=== PATIENT | female | born 1980 | race Caucasian/White ===

== ENCOUNTER → 2020-03-19 08:07 | Outpatient (BNVA) | payer OTHER, SELFPAY | PROVIDERS: Visit Provider Internal Medicine Endocrinology, Diabetes & Metabolism | DX: Z13.89 Encounter for screening for other disorder (principal) | CPT/HCPCS: Q3014 ==

== ENCOUNTER 2020-03-24 08:59 | Emergency (ER) | payer OTHER, SELFPAY ==
[2020-03-24 09:20] VITALS: BP 151/95; BP 169/92; PULSE 68; PULSE 75; RESP 20; TEMP 36.4; O2SAT 100; BMI 32.5
--- NOTE | 2020-03-24 09:24 | ED.NAVMDI ---
HPI - Nausea/Vomiting/Diarrhea General Chief complaint: Nausea/Vomiting/Diarrhea Stated complaint: N?V?D Time Seen by Provider: 03/24/20 09:23 Source: patient, EMS and manufacturer's representative Mode of arrival: EMS Limitations: no limitations History of Present Illness MD elicited complaint: nausea, vomiting, diarrhea and abdominal pain Onset (ago): day(s) (last night) Description of vomiting: food contents Associated nausea: Yes Associated abdominal pain: Yes Location of pain: diffuse Radiation: diffuse Pain consistency: constant Severity: similar to previous episodes Quality: cramping Exacerbating factors: none Relieving factors: none Context: possible food poisoning (started after eating pork) Associated symptoms: loss of appetite, malaise, nausea/vomiting and other (myalgias) Related Data Home Medications Medication Instructions Recorded Confirmed albuterol sulfate 90 mcg/actuation 2 puff INHALATION QID PRN 03/19/20 03/19/20 aerosol inhaler bictegravir 50 mg-emtricitabine 1 tab PO DAILY 03/19/20 03/19/20 200 mg-tenofovir alafenam 25 mg tablet docusate sodium 100 mg capsule 100 mg PO DAILY 03/19/20 03/19/20 gabapentin 100 mg capsule 200 mg PO TID 03/19/20 03/19/20 loratadine 10 mg tablet 10 mg PO DAILY 03/19/20 03/19/20 montelukast 10 mg tablet 10 mg PO DAILY 03/19/20 03/19/20 nabumetone 500 mg tablet 500 mg PO BID 03/19/20 03/19/20 naratriptan 2.5 mg tablet 2.5 mg PO DAILY 03/19/20 03/19/20 pantoprazole 40 mg tablet,delayed 40 mg PO DAILY 03/19/20 03/19/20 release sennosides 8.6 mg tablet 8.6 mg PO BEDTIME 03/19/20 03/19/20 topiramate 50 mg tablet 50 mg PO tab 03/19/20 03/19/20 Previous Rx's Medication Instructions Recorded ezetimibe 10 mg tablet 10 mg PO DAILY 30 Days #30 tab 03/19/20 levothyroxine 175 mcg tablet 175 mcg PO DAILY 9 Days #9 tab 03/19/20 pravastatin 10 mg tablet 10 mg PO DAILY 30 Days #30 tab 03/19/20 ondansetron 4 mg PO Q8H PRN #20 tab 03/24/20 promethazine 25 mg SC Q6H PRN #12 ea 03/24/20 Allergies Allergy/AdvReac Type Severity Reaction Status Date / Time Iodinated Contrast Media Allergy Severe ANAPHYLAXIS Verified 03/24/20 09:25 [IV CONTRAST] rosuvastatin [From CRESTOR] Allergy Severe SWELLING, Verified 03/24/20 09:[address] Scan Dye and Iodinated Allergy Unknown anaphylaxis Uncoded 10/25/19 00:00 Cont Review of Systems Review of Systems: Constitutional : No Weight loss, No Fever, No Chills ENT/Mouth : No sore throat, No Rhinorrhea Eyes: No Swelling, No Redness Cardiovascular : No Chest Pain, No SOB, NoEdema Respiratory : No Cough, No Sputum, No Wheezing Gastrointestinal : Positive Nausea, Positive Vomiting, positive Diarrhea, positive abdominal Pain, No Hematochezia, No Melena Genitourinary : No Dysuria, No Urinary Frequency, No Hematuria, No Urgency Musculoskeletal : No joint pain, pos Myalgias, No Joint Swelling Skin : No Skin Lesions, No rash Neuro : No Weakness, No Numbness, No Dizziness, No Headache Psych : No Anxiety/Panic, No Depression Heme/Lymph: No Bruising, No Lymphadenopathy Endocrine : No Polyuria, No Polydipsia All other systems reviewed and are negative. Gastrointestinal: Gastrointestinal: Reports nausea PMFSH Past Medical History Attestation statement: The following information was validated with the patient. Medical History (Updated 03/24/20 @ 13:12 by Loretta Baca DO) Dyslipidemia HIV (human immunodeficiency virus infection) Hypothyroidism Surgical History Hx of right breast biopsy Hx of tubal ligation Family History Family History (Updated 03/18/20 @ 08:34 by Kaylynn Patel LPN) Father CVA (cerebral vascular accident) Diabetes Mother Cervical cancer Social History Social History Alcohol intake: never Smoking Status: Never smoker Tobacco Type: Cigarette Use of substances other than those prescribed or required for medical reasons: Yes Substance Use Type: IV Drugs and Marijuana Substance Use Frequency: Daily Advance Directives: No Advance Directives Information Provided: No Physical Exam Vital Signs: Vital Signs: Last Vital Signs Temp 97.6 F 03/24/20 09:20 Pulse 73 03/24/20 14:00 Resp 15 03/24/20 14:00 BP 110/56 L 03/24/20 14:00 Pulse Ox 98 03/24/20 14:00 Body Mass Index 32.5 Appearance: Alert. Oriented X3. mild acute distress. Anxious, active vomiting Eyes: Pupils equal, round and reactive to light. ENT: Pharynx normal. Neck: Normal inspection. Neck supple. CVS: Normal heart rate and rhythm. Pulses normal. Respiratory: No respiratory distress. Breath sounds normal. Abdomen: Soft and mild epigastric tenderness no rebound or guarding. Skin: Skin warm and dry. Normal skin color. Normal skin turgor. Extremities: No lower extremity edema. No calf ttp Neuro: Oriented X 3. No motor deficit. No sensory deficit. Course Course Course Narrative: patient with no localized ttp likely reactive in nature from 8 hours of vomiting and diarrhea, hx of same in past with reactive leukocytosis can tolerate PO at this time, states she still has pain given WBC count will obtain CT scan no acute findings on CT scan feels much better no localized ttp, stable for DC MDM - Nausea/Vomiting/Diarrhea MDM Narrative Medical decision making narrative: 39 yo female comes in with n/v/d and abdominal pain after eating pork at this time will need labs, IVF, IV reglan/benadryl/ativan there is a component of anxiety as well, does smoke THC regularly, dispo per results and findigns, no localized pain at this time to suggest appendicitis or gallbladder pathology Lab Data Result diagrams: 03/24/20 09:40 03/24/20 09:40 Labs: Lab Results 03/24/20 03/24/20 03/24/20 Range/Units 09:40 09:40 09:40 WBC 24.8 H (4.8-10.8) X10*3/uL RBC 4.38 (4.20-5.50) X10*6/uL Hgb 13.0 (12.0-16.0) g/dl Hct 40.9 (37-47) % MCV 93.4 (80-98) fL MCH 29.7 (27.0-33.0) pg MCHC 31.8 (31.0-35.0) g/dl RDW 14.9 (11.0-16.0) % Plt Count 306 (160-400) X10*3/uL MPV 11.3 (9.4-12.3) fL Immature Gran % (Auto) 0.6 H (0.0-0.4) % Neut % (Auto) 88.3 H (45-73) % Lymph % (Auto) 6.3 L (20-40) % [place] % (Auto) 4.4 (2-11) % Eos % (Auto) 0.2 (0-4) % Baso % (Auto) 0.2 (0-2) % Lymph # (Auto) 1.6 (1.2-4.9) X10*3/uL [place] # (Auto) 1.1 (0.1-1.2) X10*3/uL Eos # (Auto) 0.0 (0.0-0.4) X10*3/uL Baso # (Auto) 0.1 (0.0-0.2) X10*3/uL Abs Immat Gran (auto) 0.15 H (0.00-0.03) X10*3/uL Absolute Neuts (auto) 21.9 H (2.0-8.3) X10*3/uL Absolute Nucleated RBC 0.000 (0.0-0.012) X10*3/uL Nucleated RBC % (auto) 0.0 (0.0-0.2) /100WBC Smear Tech's Comments VERIFIED Hold Blue Top SEE NOTE Sodium 138 (135-145) mmol/L Potassium 3.4 (3.3-5.1) mmol/l Chloride 105 (96-108) mmol/L Carbon Dioxide 20 L (22-29) mmol/L Anion Gap 16 (12-20) BUN 14 (9-16) mg/dL Creatinine 1.44 H (0.5-1.4) mg/dL Estim Creat Clear Calc 57.7 Estimated GFR 41 Random Glucose 184 H (60-115) mg/dL Calcium 9.0 (8.4-10.2) mg/dL Magnesium 1.7 (1.6-2.6) mg/dL Total Bilirubin 0.2 (0.0-1.0) mg/dL Direct Bilirubin < 0.2 (0.0-0.5) mg/dL AST 19 (5-31) U/L ALT 14 (0-31) U/L Alkaline Phosphatase 80 (39-117) U/L Total Protein 7.8 (6.5-8.0) g/dL Albumin 4.4 (3.5-5.0) g/dL Lipase 23 (8-78) U/L Urine Color Urine Appearance Urine pH (5.0-8.0) Ur Specific [place] (1.005-1.025) Urine Protein (NEG-TRACE) MG/DL Urine Glucose (UA) (NEG) MG/DL Urine Ketones (NEG) MG/DL Urine Blood (NEG) Urine Nitrite (NEG) Ur Leukocyte Esterase (NEG) Urine Opiates Screen (Not Detect) Ur Barbiturates Screen (Not Detect) Ur Phencyclidine Scrn (Not Detect) Ur Amphetamines Screen (Not Detect) U Benzodiazepines Scrn (Not Detect) Urine Cocaine Screen (Not Detect) U Marijuana (THC) Screen (Not Detect) 03/24/20 03/24/20 Range/Units 11:49 11:49 WBC (4.8-10.8) X10*3/uL RBC (4.20-5.50) X10*6/uL Hgb (12.0-16.0) g/dl Hct (37-47) % MCV (80-98) fL MCH (27.0-33.0) pg MCHC (31.0-35.0) g/dl RDW (11.0-16.0) % Plt Count (160-400) X10*3/uL MPV (9.4-12.3) fL Immature Gran % (Auto) (0.0-0.4) % Neut % (Auto) (45-73) % Lymph % (Auto) (20-40) % [place] % (Auto) (2-11) % Eos % (Auto) (0-4) % Baso % (Auto) (0-2) % Lymph # (Auto) (1.2-4.9) X10*3/uL [place] # (Auto) (0.1-1.2) X10*3/uL Eos # (Auto) (0.0-0.4) X10*3/uL Baso # (Auto) (0.0-0.2) X10*3/uL Abs Immat Gran (auto) (0.00-0.03) X10*3/uL Absolute Neuts (auto) (2.0-8.3) X10*3/uL Absolute Nucleated RBC (0.0-0.012) X10*3/uL Nucleated RBC % (auto) (0.0-0.2) /100WBC Smear Tech's Comments Hold Blue Top Sodium (135-145) mmol/L Potassium (3.3-5.1) mmol/l Chloride (96-108) mmol/L Carbon Dioxide (22-29) mmol/L Anion Gap (12-20) BUN (9-16) mg/dL Creatinine (0.5-1.4) mg/dL Estim Creat Clear Calc Estimated GFR Random Glucose (60-115) mg/dL Calcium (8.4-10.2) mg/dL Magnesium (1.6-2.6) mg/dL Total Bilirubin (0.0-1.0) mg/dL Direct Bilirubin (0.0-0.5) mg/dL AST (5-31) U/L ALT (0-31) U/L Alkaline Phosphatase (39-117) U/L Total Protein (6.5-8.0) g/dL Albumin (3.5-5.0) g/dL Lipase (8-78) U/L Urine Color YELLOW Urine Appearance CLEAR Urine pH 6.0 (5.0-8.0) Ur Specific [place] 1.020 (1.005-1.025) Urine Protein NEG (NEG-TRACE) MG/DL Urine Glucose (UA) NEG (NEG) MG/DL Urine Ketones NEG (NEG) MG/DL Urine Blood NEG (NEG) Urine Nitrite NEG (NEG) Ur Leukocyte Esterase NEG (NEG) Urine Opiates Screen Not Detected (Not Detect) Ur Barbiturates Screen Not Detected (Not Detect) Ur Phencyclidine Scrn Not Detected (Not Detect) Ur Amphetamines Screen Not Detected (Not Detect) U Benzodiazepines Scrn Not Detected (Not Detect) Urine Cocaine Screen Not Detected (Not Detect) U Marijuana (THC) Screen POSITIVE H (Not Detect) Discharge Plan Discharge Clinical Impression: Dehydration Diarrhea Qualifiers: Diarrhea type: unspecified type Qualified Code(s): R19.7 - Diarrhea, unspecified Vomiting Qualifiers: Vomiting type: unspecified Vomiting Intractability: non-intractable Nausea presence: with nausea Qualified Code(s): R11.2 - Nausea with vomiting, unspecified Patient Disposition: Home, Self-Care Instructions: Dehydration (ED), Acute Nausea and Vomiting (ED), Abdominal Pain (ED) Additional Instructions: return to ED for any worsening symptoms or concerns Prescriptions: New promethazine 25 mg suppository 25 mg SC Q6H PRN (Reason: nausea and vomiting) Qty: 12 RF: 0 ondansetron 4 mg tablet,disintegrating 4 mg PO Q8H PRN (Reason: nausea and vomiting) Qty: 20 RF: 0 No Action loratadine 10 mg tablet 10 mg PO DAILY RF: 0 topiramate 50 mg tablet 50 mg PO RF: 0 Biktarvy 50-200-25 mg tablet 1 tab PO DAILY RF: 0 naratriptan 2.5 mg tablet 2.5 mg PO DAILY RF: 0 pantoprazole 40 mg tablet,delayed release (DR/EC) 40 mg PO DAILY RF: 0 montelukast 10 mg tablet 10 mg PO DAILY RF: 0 albuterol sulfate 90 mcg/actuation HFA aerosol inhaler 2 puff inhalation QID PRN (Reason: wheezing) RF: 0 nabumetone 500 mg tablet 500 mg PO BID RF: 0 gabapentin 100 mg capsule 200 mg PO TID RF: 0 sennosides [Natural Senna Laxative] 8.6 mg tablet 8.6 mg PO BEDTIME RF: 0 docusate sodium 100 mg capsule 100 mg PO DAILY RF: 0 pravastatin 10 mg tablet 10 mg PO DAILY 30 Days Qty: 30 RF: 6 ezetimibe 10 mg tablet 10 mg PO DAILY 30 Days Qty: 30 RF: 6 levothyroxine 175 mcg tablet 175 mcg PO DAILY 9 Days Qty: 9 RF: 2 Referrals: Dilcia Wade NP [Primary Care Provider] - 2 days (if not better) Stand Alone Forms: Work/School Release Interventions: ED Discharge Assessment Last Done: 03/24/20 14:37
--- NOTE | 2020-03-24 09:35 | PC.NURSE ---
pt incontinent of stool, brown elisha stool, this rn cleaned the pt up pt reports having epigastric pain/burning.aching and vomiting with diarrhea since yesterday, pt also reports feeling dizzy pt does smoke marijuana every day, 3-4 blunts per pt
[2020-03-24] MEDS: Metoclopramide HCl 10 MG/2 ML VIAL 5 MG IVPUSH (09:50)
[2020-03-24] MEDS: 0.9 % Sodium Chloride 1,000 ML 999 ML IVCONT ×2 (09:50→11:45)
[2020-03-24] MEDS: diphenhydrAMINE HCL 50 MG/ML VIAL 25 MG IVPUSH (09:51)
[2020-03-24] MEDS: LORazepam 2 MG/ML VIAL 1 MG IVPUSH (09:51)
[2020-03-24 09:59] LABS: Basophils Absolute Auto 0.1 X10*3/uL (0.0-0.2); Basophils Percent Auto 0.2 % (0-2); Eosinophils Percent Auto 0.2 % (0-4); Hematocrit 40.9 % (37-47); Imm Gran Abs Auto 0.15 X10*3/uL (0.00-0.03); Imm Gran Pct Auto 0.6 % (0.0-0.4); Lymphocytes Absolute Auto 1.6 X10*3/uL (1.2-4.9); Lymphocytes Percent Auto 6.3 % (20-40); MANUAL DIFF FLAG SCAN; Mean Corpuscular HGB Conc 31.8 g/dl (31.0-35.0); Mean Corpuscular Hemoglobin 29.7 pg (27.0-33.0); Mean Corpuscular Volume 93.4 fL (80-98); Mean Platelet Volume 11.3 fL (9.4-12.3); Monocytes Absolute Auto 1.1 X10*3/uL (0.1-1.2); Monocytes Percent Auto 4.4 % (2-11); Neutrophils Absolute Auto 21.9 X10*3/uL (2.0-8.3); Neutrophils Percent Auto 88.3 % (45-73); Platelet Count 306 X10*3/uL (160-400); Red Blood Count 4.38 X10*6/uL (4.20-5.50); Red Cell Distribution Width 14.9 % (11.0-16.0); SCAN SMEAR FLAG 1; White Blood Count 24.8 X10*3/uL (4.8-10.8)
[2020-03-24 10:00] VITALS: BP 116/62; PULSE 85; RESP 15; O2SAT 100
[2020-03-24 10:24] LABS: Alanine Aminotransferase 14 U/L (0-31); Albumin Level 4.4 g/dL (3.5-5.0); Alkaline Phosphatase 80 U/L (39-117); Anion Gap 16 (12-20); Aspartate Amino Transferase 19 U/L (5-31); Bilirubin Direct < 0.2 mg/dL (0.0-0.5); Bilirubin Total 0.2 mg/dL (0.0-1.0); Blood Urea Nitrogen 14 mg/dL (9-16); Carbon Dioxide 20 mmol/L (22-29); Chloride 105 mmol/L (96-108); Creatinine Clr Calc Pharmacy 57.7; Estimated Glomerular Filt Rate 41; Glucose Random 184 mg/dL (60-115); Lipase 23 U/L (8-78); Magnesium 1.7 mg/dL (1.6-2.6); Potassium 3.4 mmol/l (3.3-5.1); Sodium 138 mmol/L (135-145); Total Protein 7.8 g/dL (6.5-8.0)
[2020-03-24 11:01] LABS: SLIDE REVIEW VERIFIED
[2020-03-24 12:01] LABS: Glucose Urine UA NEG (NEG); Leukocyte Esterase Urine NEG (NEG); Nitrite Urine NEG (NEG); Urine Blood NEG (NEG); Urine Ketones NEG (NEG); Urine Protein NEG (NEG-TRACE)
[2020-03-24 12:06] LABS: Appearance Urine CLEAR; Color Urine YELLOW
[2020-03-24 12:22] LABS: Amphetamine Screen Urine Not Detected (Not Detect); Barbiturates, Urine Not Detected (Not Detect); Benzodiazepines Screen Urine Not Detected (Not Detect); Cannabinoid Screen Urine POSITIVE (Not Detect); Cocaine Screen Urine Not Detected (Not Detect); Opiate Screen Urine Not Detected (Not Detect); Phencyclidine Screen Urine Not Detected (Not Detect)
--- NOTE | 2020-03-24 13:10 | CT_ITS ---
EXAMINATION: CT ABDOMEN AND PELVIS WITHOUT CONTRAST CLINICAL INFORMATION: Vomiting, pain, diarrhea. COMPARISON: CT 10/24/2019. Renal ultrasound 11/29/2019. TECHNIQUE: Multidetector volumetric imaging was performed from the superior aspect of the liver through the pubic symphysis. Sagittal and coronal reformatted images were obtained on the technologist's workstation. This CT examination was performed using dose optimization techniques as appropriate, variously including the following: *Automated exposure control *Adjustment of mA and/or kV according to patient size (this includes techniques or standardized protocols for targeted exams where dose is matched to indication/reason for exam; i.e. extremities or head) *Use of iterative reconstruction technique DLP: 724 mGy-cm FINDINGS: LUNG BASES: The visualized lung bases are unremarkable. LIVER, GALLBLADDER, AND BILIARY TREE: No focal lesions. No biliary duct dilatation. The gallbladder appears unremarkable. PANCREAS: Unremarkable. No acute inflammatory changes. SPLEEN: Unremarkable. ADRENAL GLANDS: Unremarkable. KIDNEYS AND URETERS: Normal attenuation. No hydronephrosis, hydroureter, or calculi seen. No perinephric stranding. BLADDER: Unremarkable. GASTROINTESTINAL TRACT: The stomach is partially distended. No evidence of bowel obstruction. No dilated small or large bowel loops. No acute inflammatory changes evident with the small and large bowel. No free air. ABDOMINAL WALL: No significant hernia is appreciated. LYMPH NODES: Normal. VASCULAR: Normal caliber aorta. PELVIC VISCERA: Anteverted uterus. Small free fluid in the pelvis. Status post tubal ligation. No adnexal masses identified. OSSEOUS STRUCTURES: No acute or suspicious findings. CT/CT abdomen pelvis wo con IMPRESSION: 1. Small nonspecific free fluid in the pelvis, which could be physiologic. Status post tubal ligation. 2. No acute process is otherwise identified in the abdomen and pelvis.
[2020-03-24 14:00] VITALS: BP 110/56; PULSE 73; RESP 15; O2SAT 98
== END 2020-03-24 15:12 | disposition home or self-care (01) ==
PROVIDERS: Emergency Provider Emergency Medicine; PCP Nurse Practitioner Family
DX: E86.0 Dehydration (principal); R11.2 Nausea with vomiting, unspecified; R19.7 Diarrhea, unspecified; R10.9 Unspecified abdominal pain; B20 Human immunodeficiency virus [HIV] disease; F17.210 Nicotine dependence, cigarettes, uncomplicated; F12.90 Cannabis use, unspecified, uncomplicated
CPT/HCPCS: 36415; 74176; 80048; 80076; 80307; 81003; 83690; 83735; 85025; 96361; 96374; 96375; 99284; J1200; J2060; J2765

== ENCOUNTER 2020-03-26 09:05 | Emergency (ER) | payer OTHER, SELFPAY ==
--- NOTE | 2020-03-26 09:12 | CT_ITS ---
EXAMINATION: CT HEAD WITHOUT CONTRAST CLINICAL INFORMATION: Headache. COMPARISON: None TECHNIQUE: Contiguous axial imaging was performed from the skull base to vertex without intravenous administration of contrast. This CT examination was performed using dose optimization techniques as appropriate, variously including the following: *Automated exposure control *Adjustment of mA and/or kV according to patient size (this includes techniques or standardized protocols for targeted exams where dose is matched to indication/reason for exam; i.e. extremities or head) *Use of iterative reconstruction technique DLP: 657 mGy-cm FINDINGS: There is no evidence of acute intracranial hemorrhage or territorial infarction. No abnormal mass effect or midline shift is seen. [place] to white matter differentiation is well preserved. No extra-axial fluid collections are identified. The ventricles are normal in size. There is no abnormal attenuation within the brain parenchyma. The osseous structures and soft tissues are normal. The mastoid air cells and visualized portions of the paranasal sinuses are well aerated. CT/CT head/brain wo con IMPRESSION: No acute intracranial process seen.
--- NOTE | 2020-03-26 09:14 | ED.HA ---
HPI - Headache General Chief Complaint: Headache Stated Complaint: headache Time Seen by Provider: 03/26/20 09:12 Source: patient and old records reviewed Mode of arrival: ambulatory Limitations: no limitations History of Present Illness MD elicited complaint: headache Pertinent past history: HIV and migraines Onset (ago): minute(s) (just [employer]) Onset description: suddenly Location: right Severity: moderate Quality & Timing: throbbing and sharp Exacerbating factors: none Relieving factors: nothing Context: occurred at rest Associated symptoms: nausea Treatments prior to arrival: none Related Data Home Medications Medication Instructions Recorded Confirmed albuterol sulfate 90 mcg/actuation 2 puff INHALATION QID PRN 03/19/20 03/19/20 aerosol inhaler bictegravir 50 mg-emtricitabine 1 tab PO DAILY 03/19/20 03/19/20 200 mg-tenofovir alafenam 25 mg tablet docusate sodium 100 mg capsule 100 mg PO DAILY 03/19/20 03/19/20 gabapentin 100 mg capsule 200 mg PO TID 03/19/20 03/19/20 loratadine 10 mg tablet 10 mg PO DAILY 03/19/20 03/19/20 montelukast 10 mg tablet 10 mg PO DAILY 03/19/20 03/19/20 nabumetone 500 mg tablet 500 mg PO BID 03/19/20 03/19/20 naratriptan 2.5 mg tablet 2.5 mg PO DAILY 03/19/20 03/19/20 pantoprazole 40 mg tablet,delayed 40 mg PO DAILY 03/19/20 03/19/20 release sennosides 8.6 mg tablet 8.6 mg PO BEDTIME 03/19/20 03/19/20 topiramate 50 mg tablet 50 mg PO tab 03/19/20 03/19/20 Previous Rx's Medication Instructions Recorded ezetimibe 10 mg tablet 10 mg PO DAILY 30 Days #30 tab 03/19/20 levothyroxine 175 mcg tablet 175 mcg PO DAILY 9 Days #9 tab 03/19/20 pravastatin 10 mg tablet 10 mg PO DAILY 30 Days #30 tab 03/19/20 ondansetron 4 mg PO Q8H PRN #20 tab 03/24/20 promethazine 25 mg VT Q6H PRN #12 ea 03/24/20 kyccqfiawo-dgchahnurfata-bgnw 1 tab PO Q6H PRN #20 tab 03/26/20 cyclobenzaprine 10 mg PO TID PRN #14 tab 03/26/20 Allergies Allergy/AdvReac Type Severity Reaction Status Date / Time Iodinated Contrast Media Allergy Severe ANAPHYLAXIS Verified 03/24/20 09:25 [IV CONTRAST] rosuvastatin [From CRESTOR] Allergy Severe SWELLING, Verified 03/24/20 09:[address] Scan Dye and Iodinated Allergy Unknown anaphylaxis Uncoded 10/25/19 00:00 Cont Review of Systems Review of Systems: Constitutional : No Fever, No Chills, No Fatigue ENT/Mouth : No sore throat, No Rhinorrhea Eyes: No Eye Pain, No Swelling, No Redness Cardiovascular : No Chest Pain, No SOB, No Dyspnea on Exertion Respiratory : No Cough, No Sputum Gastrointestinal : pos Nausea, No Vomiting, No Diarrhea, No abdominal Pain Genitourinary : No Dysuria, No Urinary Frequency, No Hematuria, Musculoskeletal : No joint pain, No Myalgias, No Joint Swelling Skin : No Skin Lesions, No rash Neuro : No Weakness, No Numbness, No Dizziness, positive Headache Psych : No Anxiety/Panic, No Depression Heme/Lymph: No Bruising, No Bleeding,No Lymphadenopathy Endocrine : No Polyuria, No Polydipsia All other systems reviewed and are negative PMFSH Past Medical History Attestation statement: The following information was validated with the patient. Medical History Dyslipidemia HIV (human immunodeficiency virus infection) Hypothyroidism Surgical History Hx of right breast biopsy Hx of tubal ligation Family History Family History (Updated 03/18/20 @ 08:34 by Kaylynn Patel LPN) Father CVA (cerebral vascular accident) Diabetes Mother Cervical cancer Social History Social History Alcohol intake: never Smoking Status: Never smoker Tobacco Type: Cigarette Smoked in Last 30 Days: No Substance Use Type: Marijuana Substance Use Frequency: Daily Last Used Substance: Unknown Advance Directives: No Advance Directives Information Provided: Yes Physical Exam Vital Signs: Vital Signs: Last Vital Signs Temp 98.3 F 03/26/20 09:15 Pulse 68 03/26/20 12:43 Resp 18 03/26/20 12:43 BP 127/66 03/26/20 11:02 Pulse Ox 97 03/26/20 12:43 Body Mass Index 33.3 Appearance: Alert. Oriented X3. No acute distress. Anxious Eyes: Pupils equal, round and reactive to light. ENT: Pharynx normal. Neck: Normal inspection. Neck supple. no meningeal signs CVS: Normal heart rate and rhythm. Pulses normal. Respiratory: No respiratory distress. Breath sounds normal. Abdomen: Soft and non-tender. Skin: Skin warm and dry. Normal skin color. Normal skin turgor. Extremities: No lower extremity edema. No calf ttp Neuro: Oriented X 3. No motor deficit. No sensory deficit. Course Course Course Narrative: negative head CT within 1 hour of symptoms, stbale for DC at this time, feels better wants to go home MDM - Headache MDM Narrative Medical decision making narrative: 39 yo female with hx of HIV undetectable levels and migraines here with abrupt onset headache - no AC therapy, patient to get stat head CT, labs, IV morphine and zofran for pain. Lab Data Result diagrams: 03/26/20 09:20 03/26/20 09:28 Labs: Lab Results 03/26/20 03/26/20 03/26/20 Range/Units 09:20 09:20 09:28 WBC 7.7 (4.8-10.8) X10*3/uL RBC 4.02 L (4.20-5.50) X10*6/uL Hgb 12.2 (12.0-16.0) g/dl Hct 37.5 (37-47) % MCV 93.3 (80-98) fL MCH 30.3 (27.0-33.0) pg MCHC 32.5 (31.0-35.0) g/dl RDW 15.3 (11.0-16.0) % Plt Count 243 (160-400) X10*3/uL MPV 11.5 (9.4-12.3) fL Immature Gran % (Auto) 0.4 (0.0-0.4) % Neut % (Auto) 70.3 (45-73) % Lymph % (Auto) 18.9 L (20-40) % [place] % (Auto) 6.8 (2-11) % Eos % (Auto) 3.2 (0-4) % Baso % (Auto) 0.4 (0-2) % Lymph # (Auto) 1.5 (1.2-4.9) X10*3/uL [place] # (Auto) 0.5 (0.1-1.2) X10*3/uL Eos # (Auto) 0.3 (0.0-0.4) X10*3/uL Baso # (Auto) 0.0 (0.0-0.2) X10*3/uL Abs Immat Gran (auto) 0.03 (0.00-0.03) X10*3/uL Absolute Neuts (auto) 5.4 (2.0-8.3) X10*3/uL Absolute Nucleated RBC 0.000 (0.0-0.012) X10*3/uL Nucleated RBC % (auto) 0.0 (0.0-0.2) /100WBC PT 11.9 (10.8-13.0) SEC INR 1.0 (0.9-1.1) APTT 33.6 (24.1-38.0) SEC Sodium 139 (135-145) mmol/L Potassium 4.1 D (3.3-5.1) mmol/l Chloride 109 H (96-108) mmol/L Carbon Dioxide 24 (22-29) mmol/L Anion Gap 10 L (12-20) BUN 8 L (9-16) mg/dL Creatinine 0.98 (0.5-1.4) mg/dL Estim Creat Clear Calc 85.7 Estimated GFR > 60 Random Glucose 90 D (60-115) mg/dL Calcium 8.3 L D (8.4-10.2) mg/dL Discharge Plan Discharge Clinical Impression: Migraine Qualifiers: Migraine type: unspecified Status migrainosus presence: without status migrainosus Intractability: not intractable Qualified Code(s): G43.909 - Migraine, unspecified, not intractable, without status migrainosus Patient Disposition: Home, Self-Care Instructions: Acute Headache (ED) Additional Instructions: return to ED for any worsening symptoms or concerns Prescriptions: New cyclobenzaprine 10 mg tablet 10 mg PO TID PRN (Reason: muscle spasm) Qty: 14 RF: 0 avcdeylduq-qyxlzjkyarvoz-mgoo 50-325-40 mg tablet 1 tab PO Q6H PRN (Reason: pain) Qty: 20 RF: 0 No Action promethazine 25 mg suppository 25 mg VT Q6H PRN (Reason: nausea and vomiting) Qty: 12 RF: 0 ondansetron 4 mg tablet,disintegrating 4 mg PO Q8H PRN (Reason: nausea and vomiting) Qty: 20 RF: 0 loratadine 10 mg tablet 10 mg PO DAILY RF: 0 topiramate 50 mg tablet 50 mg PO RF: 0 Biktarvy 50-200-25 mg tablet 1 tab PO DAILY RF: 0 naratriptan 2.5 mg tablet 2.5 mg PO DAILY RF: 0 pantoprazole 40 mg tablet,delayed release (DR/EC) 40 mg PO DAILY RF: 0 montelukast 10 mg tablet 10 mg PO DAILY RF: 0 albuterol sulfate 90 mcg/actuation HFA aerosol inhaler 2 puff inhalation QID PRN (Reason: wheezing) RF: 0 nabumetone 500 mg tablet 500 mg PO BID RF: 0 gabapentin 100 mg capsule 200 mg PO TID RF: 0 sennosides [Natural Senna Laxative] 8.6 mg tablet 8.6 mg PO BEDTIME RF: 0 docusate sodium 100 mg capsule 100 mg PO DAILY RF: 0 pravastatin 10 mg tablet 10 mg PO DAILY 30 Days Qty: 30 RF: 6 ezetimibe 10 mg tablet 10 mg PO DAILY 30 Days Qty: 30 RF: 6 levothyroxine 175 mcg tablet 175 mcg PO DAILY 9 Days Qty: 9 RF: 2 Referrals: Physician,Unknown [Primary Care Provider] - 2 days (if not better) Stand Alone Forms: Work/School Release
[2020-03-26 09:15] VITALS: BP 158/87; PULSE 68; RESP 20; TEMP 36.8; O2SAT 97; BMI 33.3
[2020-03-26] MEDS: ondansetron HCL 4 MG/2 ML VIAL IVPUSH (10:22)
[2020-03-26] MEDS: 0.9 % Sodium Chloride 1,000 ML 999 ML IVCONT (10:22)
[2020-03-26] MEDS: Morphine Sulfate 4 MG/ML CARTRIDGE IVPUSH (10:22)
[2020-03-26 10:32] LABS: Basophils Percent Auto 0.4 % (0-2); Eosinophils Absolute Auto 0.3 X10*3/uL (0.0-0.4); Eosinophils Percent Auto 3.2 % (0-4); Hematocrit 37.5 % (37-47); Hemoglobin 12.2 g/dl (12.0-16.0); Imm Gran Abs Auto 0.03 X10*3/uL (0.00-0.03); Imm Gran Pct Auto 0.4 % (0.0-0.4); Lymphocytes Absolute Auto 1.5 X10*3/uL (1.2-4.9); Lymphocytes Percent Auto 18.9 % (20-40); MANUAL DIFF FLAG NO; Mean Corpuscular HGB Conc 32.5 g/dl (31.0-35.0); Mean Corpuscular Hemoglobin 30.3 pg (27.0-33.0); Mean Corpuscular Volume 93.3 fL (80-98); Mean Platelet Volume 11.5 fL (9.4-12.3); Monocytes Absolute Auto 0.5 X10*3/uL (0.1-1.2); Monocytes Percent Auto 6.8 % (2-11); Neutrophils Absolute Auto 5.4 X10*3/uL (2.0-8.3); Neutrophils Percent Auto 70.3 % (45-73); Platelet Count 243 X10*3/uL (160-400); Red Blood Count 4.02 X10*6/uL (4.20-5.50); Red Cell Distribution Width 15.3 % (11.0-16.0); White Blood Count 7.7 X10*3/uL (4.8-10.8)
[2020-03-26 11:02] VITALS: BP 127/66; PULSE 62; RESP 16; O2SAT 99
[2020-03-26 11:21] LABS: Anion Gap 10 (12-20); Blood Urea Nitrogen 8 mg/dL (9-16); Calcium 8.3 mg/dL (8.4-10.2); Carbon Dioxide 24 mmol/L (22-29); Chloride 109 mmol/L (96-108); Creatinine Clr Calc Pharmacy 85.7; Estimated Glomerular Filt Rate > 60; Glucose Random 90 mg/dL (60-115); Potassium 4.1 mmol/l (3.3-5.1); Sodium 139 mmol/L (135-145)
[2020-03-26] MEDS: diphenhydrAMINE HCL 50 MG/ML VIAL 25 MG IVPUSH (11:33)
[2020-03-26] MEDS: Metoclopramide HCl 10 MG/2 ML VIAL IVPUSH (11:34)
[2020-03-26 11:53] LABS: Partial Thromboplastin Time 33.6 SEC (24.1-38.0); Prothrombin Time 11.9 SEC (10.8-13.0)
[2020-03-26 12:43] VITALS: PULSE 68; RESP 18; O2SAT 97
--- NOTE | 2020-03-26 12:44 | PC.NURSE ---
Patient states she feels like she is ready to go home
== END 2020-03-26 13:54 | disposition home or self-care (01) ==
PROVIDERS: Emergency Provider Emergency Medicine
DX: G43.909 Migraine, unspecified, not intractable, without status migrainosus (principal)
CPT/HCPCS: 36415; 70450; 80048; 85025; 85610; 85730; 96361; 96374; 96375; 99284; J1200; J2270; J2405; J2765

== ENCOUNTER 2020-06-10 15:26 | Outpatient (REF) | payer OTHER, SELFPAY ==
--- NOTE | ~2020-06-10 | XR_ITS ---
EXAMINATION: XR LUMBOSACRAL SPINE CLINICAL INFORMATION: Low back pain. COMPARISON: None TECHNIQUE: Three views of the lumbosacral spine. FINDINGS: There is normal lumbar lordosis. The vertebral heights and alignment is normal. There is mild loss of L5-S1 disc height. Rest the disc heights are normal. There is no visible acute fracture, dislocation or lytic process seen. The SI joints are symmetrical. XR/XR lumbar spine 2-3V IMPRESSION: Mild degenerative disc changes L4-S1 disc. No visible acute fracture or dislocation seen.
[2020-06-10 16:53] LABS: Cholesterol 248 mg/dL; HDL Cholesterol 37 mg/dL; LDL Cholesterol Calculated 166 mg/dl; Triglycerides 225 mg/dL
[2020-06-10 18:34] LABS: Free T4 (Free Thyroxine) 0.78 ng/dL (0.71-1.85)
[2020-06-10 19:07] LABS: Thyroid Stimulating Hormone 11.35 uIU/mL (0.32-4.0)
[2020-06-11 03:27] LABS: LDL Cholesterol Direct 146 mg/dL (<100)
== END 2020-06-10 15:27 | disposition home or self-care (01) ==
LOC: HO.XRAY 15:26
PROVIDERS: Absent Provider Internal Medicine Endocrinology, Diabetes & Metabolism; PCP Nurse Practitioner Family; Visit Provider Student in an Organized Health Care Education/Training Program
DX: M54.5 Low back pain (principal); M25.50 Pain in unspecified joint; R20.0 Anesthesia of skin; E03.8 Other specified hypothyroidism; E06.3 Autoimmune thyroiditis; E78.5 Hyperlipidemia, unspecified
CPT/HCPCS: 36415; 72100; 80061; 83721; 84439; 84443; 99212

== ENCOUNTER 2020-06-30 11:00 | Outpatient (RCR) | payer OTHER, SELFPAY ==
--- NOTE | 2020-06-16 11:30 | MHC.PT.EP ---
[facility] [place] [facility] [place] [facility] [place] Office [address] Arlyn Colón [address] [phone] F: [phone] F: [phone] F: [phone] F: [phone] Physical Therapy Plan of Care Date of Evaluation: 06/16/20 Date of Surgery: Diagnosis: low back pain Assessment: The patient arrived reporting pain in her lower back with movement. She presents with poor body mechanics, poor posture, and poor breathing mechanics (pt is a chest breather). She will benefit from activity modification, breathing training, body mechanics training, posture retraining and gentle core stabilization. She has good rehab potential. Frequency and Duration: The patient will be seen 2x/week x 4 weeks Short Term Goals: 1. Pt to be able to demonstrate diaphragmatic breathing to show improved breathing mechanics 2. Pt to be able to demonstrate proper sitting posture. Parole Board Member Goals: 1. Pt to be able to move in functional movement patterns without limiting back pain. 2. The patient to be able to demonstrate a functional squat without limiting pain 3. Pt to report 50% improvement in CLOF. Treatment Plan: Modalities to reduce pain, spasms and effusion. Manual therapy to restore motion and function. Therapeutic exercise to improve strength and flexibility. Neuromuscular re-education for posture and balance. Therapeutic activities to return to functional activities of daily living. Electronically signed by: Lilia Morse PT DPT Please sign and return to therapist. Thank you for your referral.
== END 2020-07-23 07:33 | disposition other institution (70) ==
LOC: HO.PT 11:00
PROVIDERS: PCP Nurse Practitioner Family; Visit Provider Student in an Organized Health Care Education/Training Program
DX: M54.5 Low back pain (principal)
CPT/HCPCS: 97110; 97112; 97162

== ENCOUNTER 2020-11-23 13:05 | Emergency (ER) | payer OTHER, SELFPAY ==
--- NOTE | ~2020-11-23 | CT_ITS ---
EXAMINATION: CT ABDOMEN AND PELVIS WITHOUT CONTRAST CLINICAL INFORMATION: Left lower quadrant abdominal pain, upper abdominal pain, contrast allergy. COMPARISON: CT abdomen and pelvis 03/24/2020. TECHNIQUE: Multidetector volumetric imaging was performed from the superior aspect of the liver through the pubic symphysis. Sagittal and coronal reformatted images were obtained on the technologist's workstation. This CT examination was performed using dose optimization techniques as appropriate, variously including the following: *Automated exposure control *Adjustment of mA and/or kV according to patient size (this includes techniques or standardized protocols for targeted exams where dose is matched to indication/reason for exam; i.e. extremities or head) *Use of iterative reconstruction technique DLP: 764 mGy-cm FINDINGS: LUNG BASES: The visualized lung bases are unremarkable. LIVER, GALLBLADDER, AND BILIARY TREE: The liver is normal in size, shape, and attenuation. No focal hepatic lesion or biliary ductal dilatation is present. The gallbladder is unremarkable with no evidence of radiopaque gallstones, gallbladder wall thickening, or obvious pericholecystic inflammatory changes. PANCREAS: Unremarkable. SPLEEN: Unremarkable. ADRENAL GLANDS: Unremarkable. KIDNEYS AND URETERS: The kidneys are normal in size, shape, and attenuation. No hydronephrosis, hydroureter, or calculi seen. No perinephric stranding. BLADDER: Unremarkable. GASTROINTESTINAL TRACT: The small bowel appears normal. The appendix is normal. The colon is normal in caliber with no evidence of diverticulosis or evidence of colitis. ABDOMINAL WALL: No significant hernia is appreciated. There is a likely sebaceous cyst in the right anterolateral upper thigh. LYMPH NODES: Normal. VASCULAR: Mild atherosclerosis. PELVIC VISCERA: The uterus and adnexa are unremarkable. There is a small volume of free fluid in the pelvis which is likely physiologic. OSSEOUS STRUCTURES: Unremarkable. CT/CT abdomen pelvis wo con IMPRESSION: Small simple density free fluid in the pelvis which is likely physiologic. No acute process identified in the abdomen and pelvis.
[2020-11-23 13:07] VITALS: BP 146/101; PULSE 78; RESP 19; TEMP 36.6; O2SAT 99; BMI 31.6
--- NOTE | 2020-11-23 14:24 | ED.ABDPAIN ---
HPI - Abdominal Pain General Chief Complaint: Abdominal Pain Stated Complaint: N/V/D Time Seen by Provider: 11/23/20 14:07 Source: patient Mode of arrival: ambulatory Limitations: no limitations History of Present Illness HPI narrative: 4-year-old female presents for abdominal pain, chills, and vomiting that started today. Patient has abdominal pain in her upper abdomen and left lower quadrant that is a 10/10 pain and feels like someone twisting her intestines. The patient had colitis in the past, and states it feels like the same pain. The pain is worse with movement. Pain does not radiate. has had diarrhea for 1 month, her PCP has referred her to Gastroenterology. No coffee-ground emesis, no dark tarry stools, patient states her stools have been mucousy. Patient is tubal ligation, no abdominal surgeries. No dysuria, urinary frequency, urinary urgency. No pelvic pain, no vaginal discharge, no vaginal bleeding. Patient tells me she has HIV and is currently being treated. She does smoke marijuana daily, but has never had hyperemesis cannabinoid syndrome in the past. MD elicited complaint: abdominal pain Pertinent past history: other (colitis) Onset (ago): hour(s) (6) Pain Consistency: constant Location: LUQ, RUQ and LLQ Severity: severe Pain scale (0-10): 10 Quality: sharp and other (twisting) Radiation: none Migration to: no migration Exacerbating factors: movement Relieving factors: nothing Context: history of similar episodes Associated symptoms: nausea, vomiting, diarrhea and chills Related Data Home Medications Medication Instructions Recorded Confirmed albuterol sulfate 90 mcg/actuation 2 puff INHALATION QID PRN 03/19/20 03/19/20 aerosol inhaler bictegravir 50 mg-emtricitabine 1 tab PO DAILY 03/19/20 03/19/20 200 mg-tenofovir alafenam 25 mg tablet docusate sodium 100 mg capsule 100 mg PO DAILY 03/19/20 03/19/20 gabapentin 100 mg capsule 200 mg PO TID 03/19/20 03/19/20 loratadine 10 mg tablet 10 mg PO DAILY 03/19/20 03/19/20 montelukast 10 mg tablet 10 mg PO DAILY 03/19/20 03/19/20 nabumetone 500 mg tablet 500 mg PO BID 03/19/20 03/19/20 naratriptan 2.5 mg tablet 2.5 mg PO DAILY 03/19/20 03/19/20 pantoprazole 40 mg tablet,delayed 40 mg PO DAILY 03/19/20 03/19/20 release sennosides 8.6 mg tablet (Natural 8.6 mg PO BEDTIME 03/19/20 03/19/20 Senna Laxative) topiramate 50 mg tablet 50 mg PO tab 03/19/20 03/19/20 Previous Rx's Medication Instructions Recorded ondansetron 4 mg disintegrating 4 mg PO Q8H PRN #20 tab 03/24/20 tablet promethazine 25 mg rectal 25 mg LA Q6H PRN #12 ea 03/24/20 suppository ugvpshrrlj-mlevgedgudvpf-xcohajxb 1 tab PO Q6H PRN #20 tab 03/26/20 50 mg-325 mg-40 mg tablet cyclobenzaprine 10 mg tablet 10 mg PO TID PRN #14 tab 03/26/20 levothyroxine 200 mcg tablet 200 mcg PO DAILY 90 Days #90 tab 06/11/20 ezetimibe 10 mg tablet (Zetia) 10 mg PO DAILY 30 Days #30 tab 09/15/20 pravastatin 10 mg tablet 10 mg PO BEDTIME 30 Days #30 tab 09/15/20 ondansetron HCl 4 mg tablet 4 mg PO Q8H 3 Days #9 tab 11/23/20 (Zofran) Allergies Allergy/AdvReac Type Severity Reaction Status Date / Time Iodinated Contrast Media Allergy Severe ANAPHYLAXIS Verified 06/10/20 15:31 [IV CONTRAST] rosuvastatin [From CRESTOR] Allergy Severe SWELLING, Verified 06/10/20 15:[address] Scan Dye and Iodinated Allergy Unknown anaphylaxis Uncoded 10/25/19 00:00 Cont Review of Systems Constitutional: Denies body ache(s), Reports chills, Reports fatigue, Denies fever(s), Denies headache(s), Reports malaise and Denies weakness Eyes: Denies diplopia Denies vertigo, Denies dizziness, Denies otalgia, Denies headache(s), Denies mouth pain, Denies neck pain, Denies post nasal drip, Denies sinus pain and Denies sore throat Cardiovascular: Denies chest pain, Denies syncope, Denies leg edema, Denies lightheadedness, Denies Loss of Consciousness, Denies palpitations and Denies dyspnea Respiratory: Denies chest congestion, Denies cough and Denies dyspnea Gastrointestinal: Reports abdominal pain, Denies melena, Denies hematochezia, Reports change in bowel habits, Denies coffee ground emesis, Denies constipation, Denies fecal incontinence, Reports diarrhea, Reports nausea, Reports vomiting and Denies hematemesis Comments: Reports diarrhea for a month Genitourinary: Denies dysuria, Denies pelvic pain, Denies flank pain, Denies urinary incontinence, Denies urinary urgency, Denies vaginal discharge, Denies vaginal odor and Denies vaginal pruritus Musculoskeletal: Reports no additional musculoskeletal complaints, Denies back pain and Denies neck pain Skin/Breast: Denies rash Denies confusion, Denies vertigo, Denies dizziness, Denies syncope, Denies headache(s) and Denies weakness Psychiatric: Denies anxiety, Denies confusion and Denies depression Endocrine: Reports fatigue and Denies palpitations Physical Exam Vital Signs: Vital Signs: Last Vital Signs Temp 99.0 F 11/23/20 16:00 Pulse 58 11/23/20 16:00 Resp 16 11/23/20 16:00 BP 110/65 11/23/20 16:00 Pulse Ox 99 11/23/20 16:00 Body Mass Index 31.6 Const: General: alert, awake, in distress (tearful) mild and anxious; No confusion Nutritional Appearance: well nourished Orientation/consciousness: patient oriented x3 and No confusion Limitations: no limitations HENMT: Head: Yes normal to inspection, Yes normocephalic and Yes atraumatic Ears: hearing grossly normal bilaterally, external ears normal, TM's normal bilaterally and EAC's normal General nose exam: Normal external nose present Face and sinus: Yes normal facial exam and Yes sinuses nontender Mouth: Normal oral and palatal mucosa present Throat: Yes posterior oropharynx normal Eyes: Conjunctivae: conjunctivae normal Pupils: Equal, round and reactive pupils present EOM: EOMs intact bilaterally Neck: Neck: Yes full ROM, Yes no lymphadenopathy and Yes supple Resp: Effort & Inspection: normal respiratory effort and able to speak in complete sentences Auscultation: clear to auscultation bilaterally, no crackles, no rales, no rhonchi and no wheezes Cardio: Rate: regular rate Rhythm: regular rhythm Heart sounds: S1 normal heart sound present and S2 normal heart sound present GI: Inspection: Yes normal to inspection Palpation (GI): Soft to palpation, Tenderness to palpation present (GI) in the epigastrum, in the LLQ, in the LUQ and in the RUQ; Negative for not at McBurney's point, not periumbilically, not suprapubicly, Eli's sign negative, with no rebound tenderness and Rovsing's sign negative, Guarding due to palpation present (GI) in the LLQ and not rigid Percussion: Yes normal to percussion Auscultation: normal bowel sounds : General: Yes no CVA tenderness Back/Spine/Pelvis: Back: no CVA tenderness Skin: General skin exam: no rashes or lesions noted Neuro: General: patient oriented x3 and No confusion Cranial nerves: Yes Equal, round and reactive pupils present Extrem: General: Yes normal to inspection and Yes full ROM Psych: Appearance: grossly normal Affect: normal affect Attitude: cooperative Thought process: Normal thought process present Course Course Course Narrative: 40-year-old female presents for abdominal pain, nausea, vomiting, and diarrhea. Abdominal pain and vomiting started today, patient has had diarrhea for months and is referred to GI. On exam, patient is tearful, abdomen is soft, with guarding in her upper abdomen and left lower quadrant, and guarding in her epigastrium and left lower quadrant. Patient is afebrile but continues to complain of chills, will get a rectal temperature. Patient has an anaphylactic allergy to iodinated contrast. Will get labs, urine, do a non con abdominal CT Elevated white blood cell count 14.7, patient has mildly elevated AST and ALT. Lipase is 23. Rectal temp is 98.6? F. CT shows no acute pathology and patient's abdomen. Under exam, patient is feeling much less nauseous, has reduced abdominal pain, and is not vomiting. Patient able to get a urine now, after we get urinalysis, [facility] and follow up with primary care provider Patient has negative urine was sent home on [facility] MDM - Abdominal Pain Lab Data Result diagrams: 11/23/20 14:56 11/23/20 14:56 Labs: Lab Results 11/23/20 11/23/20 11/23/20 Range/Units 14:56 14:56 15:11 WBC 14.7 H (4.8-10.8) X10*3/uL RBC 4.44 (4.20-5.50) X10*6/uL Hgb 13.4 (12.0-16.0) g/dl Hct 40.4 (37-47) % MCV 91.0 (80-98) fL MCH 30.2 (27.0-33.0) pg MCHC 33.2 (31.0-35.0) g/dl RDW 15.9 (11.0-16.0) % Plt Count 217 (160-400) X10*3/uL MPV 10.7 (9.4-12.3) fL Immature Gran % (Auto) Cancelled Neut % (Auto) Cancelled Lymph % (Auto) Cancelled [place] % (Auto) Cancelled Eos % (Auto) Cancelled Baso % (Auto) Cancelled Lymph # (Auto) Cancelled [place] # (Auto) Cancelled Eos # (Auto) Cancelled Baso # (Auto) Cancelled Abs Immat Gran (auto) Cancelled Absolute Neuts (auto) Cancelled Absolute Nucleated RBC 0.000 (0.0-0.012) X10*3/uL Nucleated RBC % (auto) 0.0 (0.0-0.2) /100WBC Neutrophils % (Manual) 80 H (45-73) % Band Neutrophils % 6 H (3-5) % Lymphocytes % (Manual) 9 L (20-40) % Monocytes % (Manual) 4 (2-11) % Metamyelocytes % 1 % Abs Neuts (Manual) 12.6 H (2.2-7.9) X10*3/uL Lymphocytes # (Manual) 1.3 (0.6-4.8) X10*3/uL Monocytes # (Manual) 0.6 (0.0-1.2) X10*3/uL Metamyelocytes # 0.1 X10*3/uL Sm[place] Cells PRESENT Platelet Estimate NORMAL (NORMAL) Large Platelets PRESENT Plt Morphology Comment NOTED RBC Morphology NOTED Macrocytosis 1+ (5-14) /OIF [place] Cells 1+ (0-2) /OIF Acanthocytes (Sp[place]) 1+ (0-2) /OIF Sodium 137 (135-145) mmol/L Potassium 4.7 (3.3-5.1) mmol/L Chloride 106 (96-108) mmol/L Carbon Dioxide 23 (22-29) mmol/L Anion Gap 13 (12-20) BUN 12 (9-16) mg/dL Creatinine 1.29 (0.5-1.4) mg/dL Estim Creat Clear Calc 62.8 Estimated GFR 46 Random Glucose 103 (60-115) mg/dL Calcium 9.5 D (8.4-10.2) mg/dL Total Bilirubin 0.4 (0.0-1.0) mg/dL AST 45 H D (5-31) U/L ALT 40 H (0-31) U/L Alkaline Phosphatase 59 D (39-117) U/L Total Protein 7.9 (6.5-8.0) g/dL Albumin 4.3 (3.5-5.0) g/dL Lipase 23 (8-78) U/L Urine Color Urine Appearance Urine pH (5.0-8.0) Ur Specific [place] (1.005-1.025) Urine Protein (NEG-TRACE) MG/DL Urine Glucose (UA) (NEG) MG/DL Urine Ketones (NEG) MG/DL Urine Blood (NEG) Urine Nitrite (NEG) Ur Leukocyte Esterase (NEG) Urine Test (NEGATIVE) COVID-19 (RUTH) Negative (Negative) COVID-19 Clin Com See Note 11/23/20 11/23/20 Range/Units 17:19 17:19 WBC (4.8-10.8) X10*3/uL RBC (4.20-5.50) X10*6/uL Hgb (12.0-16.0) g/dl Hct (37-47) % MCV (80-98) fL MCH (27.0-33.0) pg MCHC (31.0-35.0) g/dl RDW (11.0-16.0) % Plt Count (160-400) X10*3/uL MPV (9.4-12.3) fL Immature Gran % (Auto) Neut % (Auto) Lymph % (Auto) [place] % (Auto) Eos % (Auto) Baso % (Auto) Lymph # (Auto) [place] # (Auto) Eos # (Auto) Baso # (Auto) Abs Immat Gran (auto) Absolute Neuts (auto) Absolute Nucleated RBC (0.0-0.012) X10*3/uL Nucleated RBC % (auto) (0.0-0.2) /100WBC Neutrophils % (Manual) (45-73) % Band Neutrophils % (3-5) % Lymphocytes % (Manual) (20-40) % Monocytes % (Manual) (2-11) % Metamyelocytes % % Abs Neuts (Manual) (2.2-7.9) X10*3/uL Lymphocytes # (Manual) (0.6-4.8) X10*3/uL Monocytes # (Manual) (0.0-1.2) X10*3/uL Metamyelocytes # X10*3/uL Smudge Cells Platelet Estimate (NORMAL) Large Platelets Plt Morphology Comment RBC Morphology Macrocytosis /OIF [place] Cells /OIF Acanthocytes (Spur) /OIF Sodium (135-145) mmol/L Potassium (3.3-5.1) mmol/L Chloride (96-108) mmol/L Carbon Dioxide (22-29) mmol/L Anion Gap (12-20) BUN (9-16) mg/dL Creatinine (0.5-1.4) mg/dL Estim Creat Clear Calc Estimated GFR Random Glucose (60-115) mg/dL Calcium (8.4-10.2) mg/dL Total Bilirubin (0.0-1.0) mg/dL AST (5-31) U/L ALT (0-31) U/L Alkaline Phosphatase (39-117) U/L Total Protein (6.5-8.0) g/dL Albumin (3.5-5.0) g/dL Lipase (8-78) U/L Urine Color YELLOW Urine Appearance CLEAR Urine pH 6.0 (5.0-8.0) Ur Specific [place] 1.025 (1.005-1.025) Urine Protein NEG (NEG-TRACE) MG/DL Urine Glucose (UA) NEG (NEG) MG/DL Urine Ketones NEG (NEG) MG/DL Urine Blood NEG (NEG) Urine Nitrite NEG (NEG) Ur Leukocyte Esterase NEG (NEG) Urine Test NEGATIVE (NEGATIVE) COVID-19 (RUTH) (Negative) COVID-19 Clin Com Discharge Plan Discharge Clinical Impression: Vomiting Qualifiers: Vomiting type: unspecified Vomiting Intractability: non-intractable Nausea presence: with nausea Qualified Code(s): R11.2 - Nausea with vomiting, unspecified Patient Disposition: Home, Self-Care Instructions: Acute Nausea and Vomiting (ED), Abdominal Pain (ED) Additional Instructions: Please call your primary care provider tomorrow for follow-up appointment from today's emergency room visit. Please follow-up with your gastroenterology appointment as scheduled. Please fill the prescription for Zofran that I provided for you. Please drink 2-3 L of water today and tomorrow. Your CT scan of your abdomen was unremarkable, your labs were normal. I think this is most likely a viral illness. If you have fevers, worsening abdominal pain, or any other new or concerning symptoms please return to emergency room. Prescriptions: New ondansetron HCl [Zofran] 4 mg tablet 4 mg PO Q8H 3 Days Qty: 9 RF: 0 No Action levothyroxine 200 mcg tablet 200 mcg PO DAILY 90 Days Qty: 90 RF: 1 ezetimibe [Zetia] 10 mg tablet 10 mg PO DAILY 30 Days Qty: 30 RF: 2 pravastatin 10 mg tablet 10 mg PO BEDTIME 30 Days Qty: 30 RF: 2 promethazine 25 mg suppository 25 mg LA Q6H PRN (Reason: nausea and vomiting) Qty: 12 RF: 0 ondansetron 4 mg tablet,disintegrating 4 mg PO Q8H PRN (Reason: nausea and vomiting) Qty: 20 RF: 0 cyclobenzaprine 10 mg tablet 10 mg PO TID PRN (Reason: muscle spasm) Qty: 14 RF: 0 dcrlrflkjq-gnsefhaoxmrcl-pkrq 50-325-40 mg tablet 1 tab PO Q6H PRN (Reason: pain) Qty: 20 RF: 0 loratadine 10 mg tablet 10 mg PO DAILY RF: 0 topiramate 50 mg tablet 50 mg PO RF: 0 Biktarvy 50-200-25 mg tablet 1 tab PO DAILY RF: 0 naratriptan 2.5 mg tablet 2.5 mg PO DAILY RF: 0 pantoprazole 40 mg tablet,delayed release (DR/EC) 40 mg PO DAILY RF: 0 montelukast 10 mg tablet 10 mg PO DAILY RF: 0 albuterol sulfate 90 mcg/actuation HFA aerosol inhaler 2 puff inhalation QID PRN (Reason: wheezing) RF: 0 nabumetone 500 mg tablet 500 mg PO BID RF: 0 gabapentin 100 mg capsule 200 mg PO TID RF: 0 sennosides [Natural Senna Laxative] 8.6 mg tablet 8.6 mg PO BEDTIME RF: 0 docusate sodium 100 mg capsule 100 mg PO DAILY RF: 0 PMFSH Past Medical History Medical History Dyslipidemia HIV (human immunodeficiency virus infection) Hypothyroidism Surgical History Hx of right breast biopsy Hx of tubal ligation Family History Family History Father CVA (cerebral vascular accident) Diabetes Mother Cervical cancer Social History Social History Alcohol intake: never Patient Tobacco Use Status: Former Tobacco user Substance Use Type: Marijuana Substance Use Frequency: Daily Advance Directives: No Advance Directives Information Provided: Yes Patient : No
[2020-11-23 15:03] LABS: Hematocrit 40.4 % (37-47); Hemoglobin 13.4 g/dl (12.0-16.0); Mean Corpuscular HGB Conc 33.2 g/dl (31.0-35.0); Mean Corpuscular Hemoglobin 30.2 pg (27.0-33.0); Mean Platelet Volume 10.7 fL (9.4-12.3); Platelet Count 217 X10*3/uL (160-400); Red Blood Count 4.44 X10*6/uL (4.20-5.50); Red Cell Distribution Width 15.9 % (11.0-16.0)
[2020-11-23 15:04] LABS: WBC ABN SCTR FOR CBC 1; White Blood Count 14.7 X10*3/uL (4.8-10.8)
[2020-11-23] MEDS: ondansetron HCL 4 MG/2 ML VIAL IVPUSH (15:07)
[2020-11-23] MEDS: Morphine Sulfate 4 MG/ML CARTRIDGE IVPUSH (15:07)
[2020-11-23] MEDS: 0.9 % Sodium Chloride 1,000 ML 999 ML IV (15:07)
[2020-11-23 15:17] VITALS: TEMP 37
[2020-11-23 15:25] LABS: Alanine Aminotransferase 40 U/L (0-31); Albumin Level 4.3 g/dL (3.5-5.0); Alkaline Phosphatase 59 U/L (39-117); Anion Gap 13 (12-20); Aspartate Amino Transferase 45 U/L (5-31); Bilirubin Total 0.4 mg/dL (0.0-1.0); Blood Urea Nitrogen 12 mg/dL (9-16); Calcium 9.5 mg/dL (8.4-10.2); Carbon Dioxide 23 mmol/L (22-29); Chloride 106 mmol/L (96-108); Creatinine Clr Calc Pharmacy 62.8; Estimated Glomerular Filt Rate 46; Glucose Random 103 mg/dL (60-115); Lipase 23 U/L (8-78); Potassium 4.7 mmol/L (3.3-5.1); Sodium 137 mmol/L (135-145); Total Protein 7.9 g/dL (6.5-8.0)
[2020-11-23 15:27] LABS: Band Neutrophils Percent 6 % (3-5); Lymphocytes Absolute Manual 1.3 X10*3/uL (0.6-4.8); Lymphocytes Percent Manual 9 % (20-40); Metamyelocytes Absolute 0.1 X10*3/uL; Metamyelocytes Percent 1 %; Monocytes Absolute Manual 0.6 X10*3/uL (0.0-1.2); Monocytes Percent Manual 4 % (2-11); Neutrophils Absolute Manual 12.6 X10*3/uL (2.2-7.9); Neutrophils Percent Manual 80 % (45-73); RBC Morphology NOTED
[2020-11-23 15:28] LABS: Acanthocytes 1+ (0-2) /OIF; Burr Cells 1+ (0-2) /OIF; Large Platelet PRESENT; Macrocytosis 1+ (5-14) /OIF; Platelet Estimate NORMAL (NORMAL); Platelet Morphology Comment NOTED; Smudge Cells PRESENT
--- NOTE | 2020-11-23 15:36 | PC.NURSE ---
iv inserted, labs drawn, rectal temp performed per provider request, covid swab performed, ivf hanging per order, pt medicated per order and awaiting ct scan, pt aware we need a urine, will continue to monitor.
[2020-11-23 15:42] LABS: COVID-19 Test Negative (Negative); IDNOW Serial# 9DD0AD1C
[2020-11-23 16:00] VITALS: BP 110/65; PULSE 58; RESP 16; TEMP 37.2; O2SAT 99
[2020-11-23 17:42] LABS: UPreg QC Valid YES; Urine Pregnancy NEGATIVE (NEGATIVE)
[2020-11-23 17:44] LABS: Glucose Urine UA NEG (NEG); Leukocyte Esterase Urine NEG (NEG); Nitrite Urine NEG (NEG); Specific Gravity - Urine 1.025 (1.005-1.025); Urine Blood NEG (NEG); Urine Ketones NEG (NEG); Urine Protein NEG (NEG-TRACE)
[2020-11-23 17:45] LABS: Appearance Urine CLEAR; Color Urine YELLOW
[2020-11-23 17:55] VITALS: BP 108/58; PULSE 74; RESP 18; TEMP 36.4; O2SAT 98
== END 2020-11-23 18:04 | disposition home or self-care (01) ==
PROVIDERS: Physician Assistant; Emergency Provider Emergency Medicine; PCP Nurse Practitioner Family
DX: R10.12 Left upper quadrant pain (principal); R10.11 Right upper quadrant pain; R10.32 Left lower quadrant pain; R11.2 Nausea with vomiting, unspecified; Z20.822 Contact with and (suspected) exposure to COVID-19; Z79.899 Other long term (current) drug therapy; Z87.891 Personal history of nicotine dependence
CPT/HCPCS: 36415; 74176; 80053; 81003; 81025; 83690; 85007; 85027; 87635; 96361; 96374; 96375; 99285; J2270; J2405

== ENCOUNTER 2021-02-05 09:45 | Outpatient (REF) | payer OTHER, SELFPAY ==
--- NOTE | ~2021-02-05 | MM_ITS ---
EXAMINATION: MM SCREENING DIGITAL BREAST TOMOSYNTHESIS, BILATERAL CLINICAL INFORMATION: Screening. Asymptomatic. The lifetime risk of breast cancer based on the Tyrer-Cuzick Model is 9.4%. COMPARISON: Mammography: January 26, 2019 and studies dating back to February 28, 2015 TECHNIQUE: Digital breast tomosynthesis is performed in both the craniocaudal and mediolateral oblique views along with computer-aided detection (CAD). Synthesized 2D images are generated from the tomosynthesis. FINDINGS: There are scattered areas of fibroglandular density (ACR BI-RADS breast composition Category b). There are no significant masses, abnormal calcifications, or other abnormalities. MM/MM tomosynthesis screening BI IMPRESSION: There are no significant changes from prior study. ASSESSMENT: BI-RADS 1: Negative RECOMMENDATION: Routine annual mammography screening. This patient's information was entered into a reminder system with a target due date for their next mammogram.
== END 2021-02-05 09:46 | disposition home or self-care (01) ==
LOC: HO.MAMMO 09:45
PROVIDERS: PCP Internal Medicine; Visit Provider Internal Medicine
DX: Z12.31 Encounter for screening mammogram for malignant neoplasm of breast (principal)
CPT/HCPCS: 77063; 77067

== ENCOUNTER 2021-04-05 12:13 | Emergency (ER) | payer OTHER, SELFPAY ==
[2021-04-05 13:23] LABS: Influenza A PCR NEGATIVE (Negative); Influenza B PCR NEGATIVE (Negative); Resp Syncy Virus RNA Qual PCR NEGATIVE (Negative); SARS COV2 PCR INHOUSE POSITIVE (Negative)
[2021-04-05 16:54] VITALS: BP 146/89; PULSE 91; TEMP 36.1; O2SAT 98; BMI 31.6
--- NOTE | 2021-04-05 17:24 | ED.NAVMDI ---
HPI - Nausea/Vomiting/Diarrhea General Chief complaint: Nausea/Vomiting/Diarrhea Stated complaint: N/V/D Time Seen by Provider: 04/05/21 12:26 Source: patient Mode of arrival: ambulatory History of Present Illness HPI Narrative: 40-year-old female with a past medical history of HIV, hyperlipidemia, hypothyroid, presenting to the ED complaining myalgias, nausea, vomiting, diarrhea, epigastric abdominal pain, and chills since 4:00 a.m. Presenting to ED with daughter also has similar symptoms. reports mild cough. Denies fever, SOB, CP, recent travel MD elicited complaint: nausea, vomiting, diarrhea and abdominal pain Related Data Home Medications Medication Instructions Recorded Confirmed albuterol sulfate 90 mcg/actuation 2 puff INHALATION QID PRN 03/19/20 03/19/20 aerosol inhaler bictegravir 50 mg-emtricitabine 1 tab PO DAILY 03/19/20 03/19/20 200 mg-tenofovir alafenam 25 mg tablet docusate sodium 100 mg capsule 100 mg PO DAILY 03/19/20 03/19/20 gabapentin 100 mg capsule 200 mg PO TID 03/19/20 03/19/20 loratadine 10 mg tablet 10 mg PO DAILY 03/19/20 03/19/20 montelukast 10 mg tablet 10 mg PO DAILY 03/19/20 03/19/20 nabumetone 500 mg tablet 500 mg PO BID 03/19/20 03/19/20 naratriptan 2.5 mg tablet 2.5 mg PO DAILY 03/19/20 03/19/20 pantoprazole 40 mg tablet,delayed 40 mg PO DAILY 03/19/20 03/19/20 release sennosides 8.6 mg tablet (Natural 8.6 mg PO BEDTIME 03/19/20 03/19/20 Senna Laxative) topiramate 50 mg tablet 50 mg PO tab 03/19/20 03/19/20 Previous Rx's Medication Instructions Recorded ondansetron 4 mg disintegrating 4 mg PO Q8H PRN #20 tab 03/24/20 tablet promethazine 25 mg rectal 25 mg ME Q6H PRN #12 ea 03/24/20 suppository bdnouikjjb-kpzabztslyyov-dpynfnmd 1 tab PO Q6H PRN #20 tab 03/26/20 50 mg-325 mg-40 mg tablet cyclobenzaprine 10 mg tablet 10 mg PO TID PRN #14 tab 03/26/20 levothyroxine 200 mcg tablet 200 mcg PO DAILY 90 Days #90 tab 06/11/20 ezetimibe 10 mg tablet (Zetia) 10 mg PO DAILY 30 Days #30 tab 09/15/20 pravastatin 10 mg tablet 10 mg PO BEDTIME 30 Days #30 tab 09/15/20 ondansetron HCl 4 mg tablet 4 mg PO Q8H 3 Days #9 tab 11/23/20 (Zofran) Allergies Allergy/AdvReac Type Severity Reaction Status Date / Time Iodinated Contrast Media Allergy Severe ANAPHYLAXIS Verified 06/10/20 15:31 [IV CONTRAST] rosuvastatin [From CRESTOR] Allergy Severe SWELLING, Verified 06/10/20 15:[address] Scan Dye and Iodinated Allergy Unknown anaphylaxis Uncoded 10/25/19 00:00 Cont Review of Systems Review of Systems: Constitutional: No Fever, + Chills ENT/Mouth: No Ear Pain, No Nasal Congestion, No sore throat, No Rhinorrhea, No Swallowing Difficulty Cardiovascular: No Chest Pain, No SOB Respiratory: + Cough, No Sputum, No Wheezing Gastrointestinal: + Nausea, + Vomiting, + Diarrhea, No Constipation, + Abdominal pain Genitourinary:, No Dysuria, No Urinary Frequency, No Hematuria, No Flank Pain Musculoskeletal: No joint pain, + Myalgias, No Joint Swelling Skin: No Skin Lesions, No rash Neuro: No Weakness, No Numbness, No Paresthesias Yes all other systems are reviewed and are negative [facility] Past Medical History Attestation statement: The following information was validated with the patient. Medical History Dyslipidemia HIV (human immunodeficiency virus infection) Hypothyroidism Surgical History Hx of right breast biopsy Hx of tubal ligation Family History Family History Father CVA (cerebral vascular accident) Diabetes Mother Cervical cancer Social History Social History Alcohol intake: never Patient Tobacco Use Status: Former Tobacco user Substance Use Type: Marijuana Advance Directives: No Advance Directives Information Provided: No Patient : No Physical Exam Vital Signs: Vital Signs: Last Vital Signs Temp 96.9 F 04/05/21 16:54 Pulse 91 04/05/21 16:54 BP 146/89 H 04/05/21 16:54 Pulse Ox 98 04/05/21 16:54 BMI result Body Mass Index 31.6 Const: General: cooperative, healthy appearing and no acute distress Orientation/consciousness: patient oriented x3 Limitations: no limitations HENMT: Head: Yes normal to inspection and Yes atraumatic Ears: hearing grossly normal bilaterally General nose exam: Normal external nose present Face and sinus: Yes normal facial exam Eyes: General: appearance normal, both eyes and all related structures EOM: EOMs intact bilaterally Neck: Neck: Yes normal visual inspection and Yes no meningeal signs Resp: Effort & Inspection: normal respiratory effort Auscultation: clear to auscultation bilaterally, no rales, no rhonchi and no wheezes Cardio: Rate: regular rate Heart sounds: S1 normal heart sound present and S2 normal heart sound present GI: Inspection: Yes normal to inspection Palpation (GI): Soft to palpation, Tenderness to palpation present (GI) in the epigastrum, no guarding and not rigid Skin: Rashes: no rashes Wounds: no wounds Neuro: General: patient oriented x3 and no meningeal signs Gait exam (Neuro): Normal gait present Extrem: General: Yes normal to inspection MDM - Nausea/Vomiting/Diarrhea MDM Narrative Medical decision making narrative: 40-year-old female with a past medical history of HIV, hyperlipidemia, hypothyroid, presenting to the ED complaining myalgias, nausea, vomiting, diarrhea, epigastric abdominal pain, and chills since 4:00 a.m. on exam vital signs stable, NAD/ nontoxic, abdomen soft with mild epigastric TTP, no rebound or guarding, lungs CTA. Concern for viral syndrome/COVID-19 vs GERD likely from vomiting. Lower concern for pancreatitis / cholecystitis /cholelithiasis or appendicitis Patient tolerating p.o. water in the ED without difficulty plan: COVID-19 testing Medical Records Attestation: I reviewed the patient's medical records. Lab Data Attestation: I reviewed the patient's lab results. Labs: Lab Results 04/05/21 Range/Units 12:34 Influenza Type A (PCR) NEGATIVE (Negative) Influenza Type B (PCR) NEGATIVE (Negative) RSV RNA Qual (PCR) NEGATIVE (Negative) SARS-CoV-2 RNA (RT-PCR) POSITIVE A (Negative) Discharge Plan Discharge Clinical Impression: COVID-19 Patient Disposition: Home, Self-Care Instructions: COVID-19 (Coronavirus Disease 2019) (ED) Additional Instructions: At this time you will be okay for discharge. Please self isolate for 10-14 days. Do not expose yourself to others. You may not go to work or school. Please continue to follow cold instructions and wash your hands frequently. You may take Tylenol / Motrin as directed on the bottle for pain or fever. If you have constant or persistent shortness of breath, fever unresolved with medications, chest pain, or your unable to eat or drink please return to the ED CDC Guidelines for home isolation: - Stay away from others - WEAR A MASK if you are sick AND STAY HOME - Cover your mouth and nose with a tissue when you cough or sneeze. Dispose of tissues in a lined trash can and wash your hands immediately with soap and water for at least 20 seconds. If soap and water are not available, clean hands with alcohol-based hand tensioning machine operator that contains at least 60% alcohol. - Clean your hands often with soap and water for at least 20 seconds - Avoid touching your eyes, nose and mouth with unwashed hands - Do not share dishes, drinking glasses, cups, eating utensils, towels, or bedding with other people in your home. After using these items, wash them thoroughly with soap and water or put in the accounts specialist. - Clean high-touch surfaces in your isolation area ( sick room and bathroom) every day; let a caregiver clean and disinfect high-touch surfaces in other areas of the home. Clean the area or item with soap and water or another detergent if it is dirty. Then, use a household disinfectant. - Limit contact with pets and animals: If you must care for a pet, wash your hands before and after interacting with them) Prescriptions: No Action levothyroxine 200 mcg tablet 200 mcg PO DAILY 90 Days Qty: 90 RF: 1 ezetimibe [Zetia] 10 mg tablet 10 mg PO DAILY 30 Days Qty: 30 RF: 2 pravastatin 10 mg tablet 10 mg PO BEDTIME 30 Days Qty: 30 RF: 2 ondansetron HCl [Zofran] 4 mg tablet 4 mg PO Q8H 3 Days Qty: 9 RF: 0 promethazine 25 mg suppository 25 mg ME Q6H PRN (Reason: nausea and vomiting) Qty: 12 RF: 0 ondansetron 4 mg tablet,disintegrating 4 mg PO Q8H PRN (Reason: nausea and vomiting) Qty: 20 RF: 0 cyclobenzaprine 10 mg tablet 10 mg PO TID PRN (Reason: muscle spasm) Qty: 14 RF: 0 efurhmolvy-fexfhutnizuxe-pbbh 50-325-40 mg tablet 1 tab PO Q6H PRN (Reason: pain) Qty: 20 RF: 0 loratadine 10 mg tablet 10 mg PO DAILY RF: 0 topiramate 50 mg tablet 50 mg PO RF: 0 Biktarvy 50-200-25 mg tablet 1 tab PO DAILY RF: 0 naratriptan 2.5 mg tablet 2.5 mg PO DAILY RF: 0 pantoprazole 40 mg tablet,delayed release (DR/EC) 40 mg PO DAILY RF: 0 montelukast 10 mg tablet 10 mg PO DAILY RF: 0 albuterol sulfate 90 mcg/actuation HFA aerosol inhaler 2 puff inhalation QID PRN (Reason: wheezing) RF: 0 nabumetone 500 mg tablet 500 mg PO BID RF: 0 gabapentin 100 mg capsule 200 mg PO TID RF: 0 sennosides [Natural Senna Laxative] 8.6 mg tablet 8.6 mg PO BEDTIME RF: 0 docusate sodium 100 mg capsule 100 mg PO DAILY RF: 0 Referrals: [facility] [Primary Care Provider] - 1 week (call) Stand Alone Forms: Work/School Release
== END 2021-04-05 19:51 | disposition home or self-care (01) ==
PROVIDERS: Emergency Medicine; Emergency Provider Emergency Medicine Emergency Medical Services
DX: U07.1 COVID-19 (principal); R11.2 Nausea with vomiting, unspecified; B20 Human immunodeficiency virus [HIV] disease; E78.5 Hyperlipidemia, unspecified
CPT/HCPCS: 0241U; 99283

== ENCOUNTER 2021-08-05 19:06 | Emergency (ER) | payer OTHER, SELFPAY ==
--- NOTE | ~2021-08-05 | XR_ITS ---
EXAMINATION: LEFT FOOT AND LEFT ANKLE. CLINICAL INFORMATION: Rolled ankle. Pain and swelling. COMPARISON: None TECHNIQUE: 3 views left foot and 2 views left ankle. FINDINGS: LEFT ANKLE: The ankle mortise and subtalar joints are normal. No visible acute fracture, dislocation or subluxation seen. LEFT FOOT: There is no visible acute fracture, dislocation or subluxation seen. The soft tissues are normal. The ankle mortise and subtalar joint is normal. The soft tissues are normal. XR/XR foot LT min 3V IMPRESSION: Unremarkable left ankle exam. Unremarkable left foot exam.
--- NOTE | ~2021-08-05 | XR_ITS ---
EXAMINATION: LEFT FOOT AND LEFT ANKLE. CLINICAL INFORMATION: Rolled ankle. Pain and swelling. COMPARISON: None TECHNIQUE: 3 views left foot and 2 views left ankle. FINDINGS: LEFT ANKLE: The ankle mortise and subtalar joints are normal. No visible acute fracture, dislocation or subluxation seen. LEFT FOOT: There is no visible acute fracture, dislocation or subluxation seen. The soft tissues are normal. The ankle mortise and subtalar joint is normal. The soft tissues are normal. XR/XR ankle LT min 3V IMPRESSION: Unremarkable left ankle exam. Unremarkable left foot exam.
[2021-08-05 19:18] VITALS: BP 132/72; PULSE 85; RESP 15; TEMP 36.6; O2SAT 100; BMI 34.9
--- NOTE | 2021-08-05 22:15 | ED_ITS ---
HPI - Extremity Injury (Lower) General Chief Complaint: Extremity Injury, Lower Stated Complaint: ankle injury Time Seen by Provider: 08/05/21 22:05 Source: patient Mode of arrival: ambulatory Limitations: no limitations History of Present Illness HPI Narrative: 40-year-old female presents to ED for left ankle pain after injuring herself trying to help an old man. Patient states she was helping old selina cross the street and onto the sidewalk and then while walking she did not realize the sidewallk was higher than usual when she end up turning her ankle and hearing a crack. Patient states lateral ankle pain. Patient denies falling to the ground or hitting head. Related Data Home Medications Medication Instructions Recorded Confirmed albuterol sulfate 90 mcg/actuation 2 puff INHALATION QID PRN 03/19/20 03/19/20 aerosol inhaler bictegravir 50 mg-emtricitabine 1 tab PO DAILY 03/19/20 03/19/20 200 mg-tenofovir alafenam 25 mg tablet docusate sodium 100 mg capsule 100 mg PO DAILY 03/19/20 03/19/20 gabapentin 100 mg capsule 200 mg PO TID 03/19/20 03/19/20 loratadine 10 mg tablet 10 mg PO DAILY 03/19/20 03/19/20 montelukast 10 mg tablet 10 mg PO DAILY 03/19/20 03/19/20 nabumetone 500 mg tablet 500 mg PO BID 03/19/20 03/19/20 naratriptan 2.5 mg tablet 2.5 mg PO DAILY 03/19/20 03/19/20 pantoprazole 40 mg tablet,delayed 40 mg PO DAILY 03/19/20 03/19/20 release sennosides 8.6 mg tablet (Natural 8.6 mg PO BEDTIME 03/19/20 03/19/20 Senna Laxative) topiramate 50 mg tablet 50 mg PO tab 03/19/20 03/19/20 Previous Rx's Medication Instructions Recorded ondansetron 4 mg disintegrating 4 mg PO Q8H PRN #20 tab 03/24/20 tablet promethazine [address] Q6H PRN #12 ea 03/24/20 suppository zvninhnnrp-jbpminqfeuqpo-tcuekwuj 1 tab PO Q6H PRN #20 tab 03/26/20 50 mg-325 mg-40 mg tablet cyclobenzaprine 10 mg tablet 10 mg PO TID PRN #14 tab 03/26/20 levothyroxine 200 mcg tablet 200 mcg PO DAILY 90 Days #90 tab 06/11/20 ezetimibe 10 mg tablet (Zetia) 10 mg PO DAILY 30 Days #30 tab 09/15/20 pravastatin 10 mg tablet 10 mg PO BEDTIME 30 Days #30 tab 09/15/20 ondansetron HCl 4 mg tablet 4 mg PO Q8H 3 Days #9 tab 11/23/20 (Zofran) cyclobenzaprine 10 mg tablet 10 mg PO TID PRN 7 Days #21 tab 08/05/21 prednisone 20 mg tablet 40 mg PO DAILY 5 Days #10 tab 08/05/21 Allergies Allergy/AdvReac Type Severity Reaction Status Date / Time Iodinated Contrast Media Allergy Severe ANAPHYLAXIS Verified 06/10/20 15:31 [IV CONTRAST] rosuvastatin [From CRESTOR] Allergy Severe SWELLING, Verified 06/10/20 15:[address] Scan Dye and Iodinated Allergy Unknown anaphylaxis Uncoded 10/25/19 00:00 Cont Review of Systems Review of Systems: Left ankle pain Yes all other systems are reviewed and are negative ON LICENSE OF [facility] Past Medical History Medical History Dyslipidemia HIV (human immunodeficiency virus infection) Hypothyroidism Surgical History Hx of right breast biopsy Hx of tubal ligation Family History Family History Father CVA (cerebral vascular accident) Diabetes Mother Cervical cancer Social History Social History Alcohol intake: never Patient Tobacco Use Status: Former Tobacco user Substance Use Type: Marijuana Advance Directives: No Advance Directives Information Provided: Yes Physical Exam Vital Signs: Vital Signs: Last Vital Signs Temp 98.3 F 08/05/21 22:34 Pulse 66 08/05/21 22:34 Resp 14 08/05/21 22:34 BP 127/66 08/05/21 22:34 Pulse Ox 100 08/05/21 22:34 BMI result Body Mass Index 34.9 Const: General: cooperative, healthy appearing, comfortable, no acute distress, well developed, alert, awake and Physically active Orientation/consciousness: patient oriented x3 HEENT: Head: Yes normal to inspection, Yes No palpable skull fracture present, Yes normocephalic, Yes atraumatic and No abrasion Eyes: General: appearance normal, both eyes and all related structures Neck: Neck: Yes normal visual inspection, Yes full ROM, Yes no lymphadenopathy, Yes no meningeal signs, Yes trachea midline, Yes supple, No anterior neck swelling and No tender Chest: Chest palpation & inspection: normal inspection of the chest and normal palpation of entire chest wall Resp: Effort & Inspection: normal respiratory effort and able to speak in complete sentences Auscultation: clear to auscultation bilaterally Cardio: Jugular venous distension: no JVD Heart sounds: S1 normal heart sound present and S2 normal heart sound present GI: Inspection: Yes normal to inspection and No abdominal wall ecchymosis Palpation (GI): Soft to palpation, not firm, nontender, no guarding and not rigid : General: No CVA tenderness and Yes no CVA tenderness Back/Spine/Pelvis: Back: no CVA tenderness, No CVA tenderness and No back tenderness Skin: General skin exam: no rashes or lesions noted and elasticity normal Neuro: General: patient oriented x3, gait normal and no meningeal signs Extrem: General: Yes normal to inspection and Yes full ROM Ankle/foot/toe images: 1. Positive for tenderness and slight swelling on palpation. Negative for ecchymosis or deformity. Patient able to dorsal and plantar flex foot. Achiles intact. Nueuro and vascular exam is intact. Motor exam intact but with pain. Psych: Appearance: grossly normal, well kempt and not disheveled Course Course Course Narrative: Patient had xray ordered Reevaluation(s) Reevaluation #1: X-rays negative for fracture. Patient placed in Bill wrap on be discharged with crutches Time: 22:37 MDM - Extremity Injury (Lower) MDM Narrative Medical decision making narrative: Ankle sprain Discharge Plan Discharge Clinical Impression: Sprain of ankle Patient Disposition: Home, Self-Care Instructions: Ankle Sprain (DC) Additional Instructions: Return to the ED for worsening pain, increased swelling, bluish black discoloration, redness, leg swelling, calf pain, chest pain, shortness of breath, or any other concerning symptoms. Please follow-up primary care provider. Continue taking nabumetone for pain relief. Prescriptions: New prednisone 20 mg tablet 40 mg PO DAILY 5 Days Qty: 10 0RF cyclobenzaprine 10 mg tablet 10 mg PO TID PRN (Reason: muscle spasm) 7 Days Qty: 21 0RF Rx Instructions: side effect is drowsiness. Do not take at work or while driving. No Action levothyroxine 200 mcg tablet 200 mcg PO DAILY 90 Days Qty: 90 1RF ezetimibe [Zetia] 10 mg tablet 10 mg PO DAILY 30 Days Qty: 30 2RF pravastatin 10 mg tablet 10 mg PO BEDTIME 30 Days Qty: 30 2RF ondansetron HCl [Zofran] 4 mg tablet 4 mg PO Q8H 3 Days Qty: 9 0RF promethazine 25 mg suppository [address] Q6H PRN (Reason: nausea and vomiting) Qty: 12 0RF ondansetron 4 mg tablet,disintegrating 4 mg PO Q8H PRN (Reason: nausea and vomiting) Qty: 20 0RF cyclobenzaprine 10 mg tablet 10 mg PO TID PRN (Reason: muscle spasm) Qty: 14 0RF maakyvvcyz-pywfysllndztp-kfxg 50-325-40 mg tablet 1 tab PO Q6H PRN (Reason: pain) Qty: 20 0RF loratadine 10 mg tablet 10 mg PO DAILY 0RF topiramate 50 mg tablet 50 mg PO 0RF Biktarvy 50-200-25 mg tablet 1 tab PO DAILY 0RF naratriptan 2.5 mg tablet 2.5 mg PO DAILY 0RF pantoprazole 40 mg tablet,delayed release (DR/EC) 40 mg PO DAILY 0RF montelukast 10 mg tablet 10 mg PO DAILY 0RF albuterol sulfate 90 mcg/actuation HFA aerosol inhaler 2 puff inhalation QID PRN (Reason: wheezing) 0RF nabumetone 500 mg tablet 500 mg PO BID 0RF gabapentin 100 mg capsule 200 mg PO TID 0RF sennosides [Natural Senna Laxative] 8.6 mg tablet 8.6 mg PO BEDTIME 0RF docusate sodium 100 mg capsule 100 mg PO DAILY 0RF Stand Alone Forms: Work/School Release Interventions: ED Discharge Assessment Last Done: 08/05/21 23:06 Discharge Date/Time: 08/05/21 23:08 Print Language: Japanese
[2021-08-05 22:34] VITALS: BP 127/66; PULSE 66; RESP 14; TEMP 36.8; O2SAT 100
== END 2021-08-05 23:08 | disposition home or self-care (01) ==
PROVIDERS: Emergency Provider Internal Medicine
DX: S93.402A Sprain of unspecified ligament of left ankle, initial encounter (principal); X50.1XXA Overexertion from prolonged static or awkward postures, initial encounter; Y93.01 Activity, walking, marching and hiking; Y92.410 Unspecified street and highway as the place of occurrence of the external cause; Y99.9 Unspecified external cause status
CPT/HCPCS: 73610; 73630; 96372; 99283; 99284

== ENCOUNTER 2021-11-13 10:30 | Outpatient (REF) | payer OTHER, SELFPAY ==
--- NOTE | ~2021-11-13 | CT_ITS ---
EXAMINATION: CT HEAD WITHOUT CONTRAST CLINICAL INFORMATION: Chronic tension-type headache. COMPARISON: CT brain 03/26/2020 TECHNIQUE: Contiguous axial imaging was performed from the skull base to vertex without intravenous administration of contrast. This CT examination was performed using dose optimization techniques as appropriate, variously including the following: *Automated exposure control *Adjustment of mA and/or kV according to patient size (this includes techniques or standardized protocols for targeted exams where dose is matched to indication/reason for exam; i.e. extremities or head) *Use of iterative reconstruction technique DLP: 822 mGy-cm FINDINGS: There is no evidence of acute intracranial hemorrhage or territorial infarction. No abnormal mass effect or midline shift is seen. Baxter to white matter differentiation is well preserved. No extra-axial fluid collections are identified. The ventricles are normal in size. There is no abnormal attenuation within the brain parenchyma. The osseous structures and soft tissues are normal. The mastoid air cells and visualized portions of the paranasal sinuses are well aerated. CT/CT head/brain wo con IMPRESSION: No acute intracranial process seen.
== END 2021-11-13 10:31 | disposition home or self-care (01) ==
LOC: HO.CT 10:30
PROVIDERS: PCP Nurse Practitioner; Visit Provider Nurse Practitioner
DX: G44.229 Chronic tension-type headache, not intractable (principal)
CPT/HCPCS: 70450

== ENCOUNTER → 2021-11-15 21:59 | Outpatient (REF) | payer OTHER, SELFPAY | LOC: HO.SL 21:59 | PROVIDERS: PCP Nurse Practitioner; Visit Provider Nurse Practitioner | DX: G44.229 Chronic tension-type headache, not intractable (principal); G47.61 Periodic limb movement disorder | CPT/HCPCS: 95810 ==

== ENCOUNTER 2022-02-08 08:16 | Outpatient (REF) | payer OTHER, SELFPAY ==
--- NOTE | ~2022-02-08 | MM_ITS ---
EXAMINATION: MM SCREENING DIGITAL BREAST TOMOSYNTHESIS, BILATERAL CLINICAL INFORMATION: Screening. Asymptomatic. The lifetime risk of breast cancer based on the Tyrer-Cuzick Model is 13%. COMPARISON: Mammography: 02/05/2021, 01/26/2019, 11/23/2016, 02/28/2015 TECHNIQUE: Digital breast tomosynthesis is performed in both the craniocaudal and mediolateral oblique views along with computer-aided detection (CAD). Synthesized 2D images are generated from the tomosynthesis. FINDINGS: There are scattered areas of fibroglandular density (ACR BI-RADS breast composition Category b). Right breast has an irregular 0.6 cm asymmetric density along posterior nipple line on right MLO view 10.5 cm from nipple, likely outer quadrant. This represents change from prior studies. Patient will be recalled for additional imaging. The remainder of the breasts show no significant changes. There is a stable circumscribed oval nodule posterior upper outer left breast similar to prior studies. No abnormal calcifications. The axilla and skin contours are unremarkable. MM/MM tomosynthesis screening BI IMPRESSION: Right: -Irregular 0.6 cm asymmetric density 10.5 cm from nipple along posterior nipple line, likely outer quadrant, change from prior exams. Left: -No significant changes from prior exams. ASSESSMENT: BI-RADS 0: Incomplete - Need Additional Imaging Evaluation RECOMMENDATION: 1. Additional views of the right breast (spot MLO, standard ML, rolled CC x2). 2. Targeted ultrasound if warranted after review of the additional views. 3. Radiology department staff will contact the patient for additional imaging. This patient's information was entered into a reminder system with a target due date for their next mammogram.
== END 2022-02-08 08:17 | disposition home or self-care (01) ==
LOC: HO.MAMMO 08:16
PROVIDERS: PCP Nurse Practitioner; Visit Provider Nurse Practitioner
DX: Z12.31 Encounter for screening mammogram for malignant neoplasm of breast (principal)
CPT/HCPCS: 77063; 77067

== ENCOUNTER 2022-02-11 08:45 | Outpatient (REF) | payer OTHER, SELFPAY ==
--- NOTE | ~2022-02-11 | MM_ITS ---
EXAMINATION: MM DIAGNOSTIC DIGITAL BREAST TOMOSYNTHESIS, RIGHT US DIAGNOSTIC ULTRASOUND BREAST, RIGHT CLINICAL INFORMATION: Recall from screening for new irregular 6 mm asymmetric density posterior outer right breast. COMPARISON: Mammography: 02/08/2022 prior exams dating back to 02/28/2015. TECHNIQUE: Digital breast tomosynthesis is performed. 2D images are generated from the tomosynthesis. The following views are obtained: Rolled CC x2, ML, spot MLO. Ultrasound right breast is targeted to the outer breast using grayscale imaging and color Doppler without and with harmonics. FINDINGS: There are scattered areas of fibroglandular density (ACR BI-RADS breast composition Category b). Additional views show the asymmetry to be less conspicuous without definable three-dimensional mass or architectural abnormality. Similar asymmetry is suggested on remote right mammography 2014. There is no definite developing density. Ultrasound demonstrates no cystic or solid mass or architectural abnormality. No focal duct ectasia. Results are discussed with the patient at time of visit. Finding right breast is suspected to represent summation artifact. As a precaution, short interval six-month follow-up right mammography will be requested to exclude developing density. Patient notes chronic bilateral nipple discharge, greater on right. Further assessment with laboratories for possible systemic hormonal etiology was discussed. MM/MM tomosynthesis added views R IMPRESSION: -Asymmetric density posterior outer right breast less conspicuous on additional views, possibly summation artifact when compared with remote prior mammography. -Unremarkable targeted right breast ultrasound. ASSESSMENT: BI-RADS 3: Probably Benign RECOMMENDATION: -Diagnostic right mammography in 6 months. -Comment: At time of appointment, patient notes chronic bilateral nipple discharge, greater on right. Correlation with serum laboratories is suggested to assess for possible systemic etiology. If finding is increasing, then breast MRI without and with gadolinium contrast may be considered for further evaluation. This patient's information was entered into a reminder system with a target due date for their next mammogram.
== END 2022-02-11 08:46 | disposition home or self-care (01) ==
LOC: HO.MAMMO 08:45
PROVIDERS: PCP Registered Nurse; Visit Provider Registered Nurse
DX: R92.2 Inconclusive mammogram (principal)
CPT/HCPCS: 76642; 77061; 77065

== ENCOUNTER 2022-04-20 00:52 | Emergency (ER) | payer OTHER, SELFPAY ==
[2022-04-20 00:58] VITALS: BP 150/84; PULSE 101; RESP 20; TEMP 36.7; O2SAT 98; BMI 32.4
[2022-04-20 01:33] VITALS: BP 136/87; PULSE 94; RESP 20; TEMP 36.7; O2SAT 98
--- NOTE | 2022-04-20 01:51 | ED.NAVMDI ---
HPI - Nausea/Vomiting/Diarrhea General Chief complaint: Nausea/Vomiting/Diarrhea Stated complaint: vomiting Time Seen by Provider: 04/20/22 01:39 Source: patient Mode of arrival: ambulatory Limitations: no limitations History of Present Illness HPI Narrative: 41-year-old female came in for evaluation vomiting and diarrhea after eating [employer], no other sick contacts, recent travel, no recent use of antibiotic. 2 hours after eating chicken nuggets from [facility] patient started to have vomiting, nonbloody watery diarrhea, chills, upper abdominal pain only with vomiting in between the vomiting no pain. Related Data Home Medications Medication Instructions Recorded Confirmed albuterol sulfate 90 mcg/actuation 2 puff inhalation QID PRN wheezing 03/19/20 03/19/20 aerosol inhaler bictegravir 50 mg-emtricitabine 1 tab PO DAILY 03/19/20 03/19/20 200 mg-tenofovir alafenam 25 mg tablet docusate sodium 100 mg capsule 100 mg PO DAILY 03/19/20 03/19/20 gabapentin 100 mg capsule 200 mg PO TID 03/19/20 03/19/20 loratadine 10 mg tablet 10 mg PO DAILY 03/19/20 03/19/20 montelukast 10 mg tablet 10 mg PO DAILY 03/19/20 03/19/20 nabumetone 500 mg tablet 500 mg PO BID 03/19/20 03/19/20 naratriptan 2.5 mg tablet 2.5 mg PO DAILY 03/19/20 03/19/20 pantoprazole 40 mg tablet,delayed 40 mg PO DAILY 03/19/20 03/19/20 release sennosides 8.6 mg tablet (Natural 8.6 mg PO BEDTIME 03/19/20 03/19/20 Senna Laxative) topiramate 50 mg tablet 50 mg PO 03/19/20 03/19/20 Previous Rx's Medication Instructions Recorded ondansetron 4 mg disintegrating 4 mg PO Q8H PRN nausea and 03/24/20 tablet vomiting #20 tabs promethazine 25 mg rectal 25 mg MO Q6H PRN nausea and 03/24/20 suppository vomiting #12 ea jsvlwewbxr-oszlpjuswrocr-yfzozadm 1 tab PO Q6H PRN pain #20 tabs 03/26/20 50 mg-325 mg-40 mg tablet cyclobenzaprine 10 mg tablet 10 mg PO TID PRN muscle spasm #14 03/26/20 tabs levothyroxine 200 mcg tablet 200 mcg PO DAILY 90 days #90 tabs 06/11/20 ezetimibe 10 mg tablet (Zetia) 10 mg PO DAILY 30 days #30 tabs 09/15/20 pravastatin 10 mg tablet 10 mg PO BEDTIME 30 days #30 tabs 09/15/20 ondansetron HCl 4 mg tablet 4 mg PO Q8H 3 days #9 tabs 11/23/20 (Zofran) cyclobenzaprine 10 mg tablet 10 mg PO TID PRN muscle spasm 7 08/05/21 days #21 tabs prednisone 20 mg tablet 40 mg PO DAILY 5 days #10 tabs 08/05/21 Allergies Allergy/AdvReac Type Severity Reaction Status Date / Time Iodinated Contrast Media Allergy Severe ANAPHYLAXIS Verified 06/10/20 15:31 [IV CONTRAST] rosuvastatin [From CRESTOR] Allergy Severe SWELLING, Verified 06/10/20 15:[address] Scan Dye and Iodinated Allergy Unknown anaphylaxis Uncoded 10/25/19 00:00 Cont Review of Systems Review of Systems: All other systems are reviewed and are negative Constitutional: Reports as per HPI and Reports no additional constitutional complaints Eyes: Reports as per HPI and Reports no additional eye complaints Reports system reviewed and no additional complaints, except as documented Cardiovascular: Reports as per HPI and Reports no additional cardiovascular complaints Respiratory: Reports as per HPI and Reports no additional respiratory complaints Gastrointestinal: Reports as per HPI and Reports no additional gastrointestinal complaints Genitourinary: Reports no additional female genitourinary complaints Musculoskeletal: Reports no additional musculoskeletal complaints Skin/Breast: Reports system reviewed and no additional complaints, except as docu Psychiatric: Reports no additional psychiatric complaints Endocrine: Reports no additional endocrine complaints Hematologic/Lymphatic: Reports no additional hematologic/lymphatic complaints Allergic/Immunologic: Reports no additional allergic/immunologic complaints Reports system reviewed and no additional complaints, except as documented and Reports Abnormal speech present [facility] Past Medical History Medical History Dyslipidemia HIV (human immunodeficiency virus infection) Hypothyroidism Surgical History Hx of right breast biopsy Hx of tubal ligation Family History Family History Father CVA (cerebral vascular accident) Diabetes Mother Cervical cancer Social History Social History Alcohol intake: never Patient Tobacco Use Status: Former Tobacco user Substance Use Type: Marijuana Advance Directives: No Advance Directives Information Provided: Yes Physical Exam Vital Signs: Vital Signs: Last Vital Signs Temp 98.0 F 04/20/22 01:33 Pulse 94 04/20/22 01:33 Resp 20 04/20/22 01:33 BP 136/87 04/20/22 01:33 Pulse Ox 98 04/20/22 01:33 O2 Del Method 04/20/22 01:33 BMI result Body Mass Index 32.4 Vital signs have been reviewed as appeared to be correct. Blood pressure normal. Heart rate normal. Respiration rate normal. Temperature normal. Oxygen saturation normal. Appearance: Alert. Oriented X3. No acute distress. Head: Normal external exam. Normocephalic. Atraumatic. No Fuller signs noted. No raccoon eyes noted Eyes: PERRLA. EOMI. Conjunctiva and sclera normal. Eyelids normal. ENT: TM's Normal. Pharynx normal. Uvula midline. Moist mucous membranes. No trismus noted. No drooling noted. No muffled voice noted. Neck: Normal inspection. Neck supple. FROM. No adenopathy. Thyroid Normal. No meningeal signs. No neck mass noted. CVS: Normal heart rate and rhythm. Heart sound normal. No murmurs noted. Pulses normal throughout. Respiratory: No respiratory distress. Painless inspiration. Breath sounds normal. No wheezes/rales/rhonchi noted. Chest nontender. No accessory muscle usage noted or decreased air movement noted. Abdomen: Soft, mild epigastric tenderness, no guarding, no rebound tenderness. Bowel sounds normal in all 4 quadrants. No distention noted. No organomegaly noted. No visible injury noted. Back: No CVA tenderness. Full range of motion noted. Skin: Skin warm and dry. Normal skin color. Normal skin turgor. No rashes/lesions/lacerations noted. Extremities: No lower extremity edema. Extremities exhibit normal range of motion. Extremities nontender. Neuro: Oriented X 3. Cranial nerve exam: II-XII are grossly intact No motor deficit. No sensory deficit. Reflexes normal. Course Course Course Narrative: 41-year-old female presented with symptoms after eating [facility] chicken, patient feels better with IV hydration/Pepcid/Zofran/Maalox and able to tolerate p.o. intake. Reactionary leukocytosis. will discharge home with reassurance. Medications Administered Discontinued Medications Generic Name Dose Route Start Last Admin Trade Name Freq PRN Reason Stop Dose Admin Al Hydroxide/Mg Hydroxide 30 ml 04/20/22 01:50 04/20/22 02:00 Magnesium Hydrox/Alum Hydrox 30 Ml Oral.Susp PO 04/20/22 01:51 30 ml ONCE ONE Administration Famotidine 20 mg 04/20/22 01:50 04/20/22 02:00 Famotidine/Pf 20 Mg/2 Ml Vial IVPUSH 04/20/22 01:51 20 mg ONCE ONE Administration Sodium Chloride 1,000 mls @ 999 mls/hr 04/20/22 01:50 04/20/22 02:00 Ns IV 04/20/22 02:50 999 mls/hr .Q1H1M ONE Administration Ondansetron HCl 4 mg 04/20/22 01:50 04/20/22 02:00 Ondansetron Hcl 4 Mg/2 Ml Vial IVPUSH 04/20/22 01:51 4 mg ONCE ONE Administration Medical Decision Making Differential Diagnosis Differential Diagnoses: The differential diagnosis associated with the presentation includes (Food poisoning, gastroenteritis, appendicitis, colitis, dehydration.) Lab Data MDM Lab Attestation statement: I reviewed the patient's lab results. 04/20/22 02:13 04/20/22 02:13 Labs: Lab Results 04/20/22 04/20/22 Range/Units 02:13 02:13 WBC 15.9 H (4.8-10.8) X10*3/uL RBC 4.58 (4.20-5.50) X10*6/uL Hgb 14.1 (12.0-16.0) g/dl Hct 42.2 (37.0-47.0) % MCV 92.1 (80.0-98.0) fL MCH 30.8 (27.0-33.0) pg MCHC 33.4 (31.0-35.0) g/dl RDW 14.4 (11.0-16.0) % Plt Count 239 (160-400) X10*3/uL MPV 10.5 (9.4-12.3) fL Immature Gran % (Auto) 0.5 H (0.0-0.4) % Neut % (Auto) 92.2 H (45-73) % Lymph % (Auto) 3.2 L (20-40) % Divide % (Auto) 3.6 (2-11) % Eos % (Auto) 0.2 (0-4) % Baso % (Auto) 0.3 (0-2) % Lymph # (Auto) 0.5 L (1.2-4.9) X10*3/uL Divide # (Auto) 0.6 (0.1-1.2) X10*3/uL Eos # (Auto) 0.0 (0.0-0.4) X10*3/uL Baso # (Auto) 0.0 (0.0-0.2) X10*3/uL Abs Immat Gran (auto) 0.08 H (0.00-0.03) X10*3/uL Absolute Neuts (auto) 14.7 H (2.0-8.3) x10*3/uL Absolute Nucleated RBC 0.000 (0.0-0.012) X10*3/uL Nucleated RBC % (auto) 0.0 (0.0-0.2) /100WBC Smear Tech's Comments VERIFIED Sodium 139 (135-145) mmol/L Potassium 3.9 (3.3-5.1) mmol/L Chloride 107 (96-108) mmol/L Carbon Dioxide 23 (22-29) mmol/L Anion Gap 13 (12-20) BUN 16 (9-16) mg/dL Creatinine 1.05 (0.5-1.4) mg/dL Estim Creat Clear Calc 77.4 Estimated GFR 58 Random Glucose 127 H (60-115) mg/dL Calcium 9.2 (8.4-10.2) mg/dL Total Bilirubin 0.8 (0.0-1.0) mg/dL Direct Bilirubin 0.2 (0.0-0.5) mg/dL AST 24 (5-31) U/L ALT 22 (0-31) U/L Alkaline Phosphatase 83 (39-117) U/L Total Protein 7.8 (6.5-8.0) g/dL Albumin 4.4 (3.5-5.0) g/dL Lipase 17 (8-78) U/L Discharge Plan Discharge Clinical Impression: Gastroenteritis Patient Disposition: Home, Self-Care Instructions: Gastroenteritis (ED) Prescriptions: No Action levothyroxine 200 mcg tablet 200 mcg PO DAILY 90 Days Qty: 90 1RF ezetimibe [Zetia] 10 mg tablet 10 mg PO DAILY 30 Days Qty: 30 2RF pravastatin 10 mg tablet 10 mg PO BEDTIME 30 Days Qty: 30 2RF ondansetron HCl [Zofran] 4 mg tablet 4 mg PO Q8H 3 Days Qty: 9 0RF promethazine 25 mg suppository 25 mg MO Q6H PRN (Reason: nausea and vomiting) Qty: 12 0RF ondansetron 4 mg tablet,disintegrating 4 mg PO Q8H PRN (Reason: nausea and vomiting) Qty: 20 0RF cyclobenzaprine 10 mg tablet 10 mg PO TID PRN (Reason: muscle spasm) Qty: 14 0RF whhgcxeeke-pzwyiluvmubsw-knia 50-325-40 mg tablet 1 tab PO Q6H PRN (Reason: pain) Qty: 20 0RF prednisone 20 mg tablet 40 mg PO DAILY 5 Days Qty: 10 0RF cyclobenzaprine 10 mg tablet 10 mg PO TID PRN (Reason: muscle spasm) 7 Days Qty: 21 0RF Rx Instructions: side effect is drowsiness. Do not take at work or while driving. loratadine 10 mg tablet 10 mg PO DAILY topiramate 50 mg tablet 50 mg PO Biktarvy 50-200-25 mg tablet 1 tab PO DAILY naratriptan 2.5 mg tablet 2.5 mg PO DAILY pantoprazole 40 mg tablet,delayed release (DR/EC) 40 mg PO DAILY montelukast 10 mg tablet 10 mg PO DAILY albuterol sulfate 90 mcg/actuation HFA aerosol inhaler 2 puff inhalation QID PRN (Reason: wheezing) nabumetone 500 mg tablet 500 mg PO BID gabapentin 100 mg capsule 200 mg PO TID sennosides [Natural Senna Laxative] 8.6 mg tablet 8.6 mg PO BEDTIME docusate sodium 100 mg capsule 100 mg PO DAILY Referrals: Physician,Unknown J [Physician] -
[2022-04-20] MEDS: ondansetron HCL 4 MG/2 ML VIAL IVPUSH (02:00)
[2022-04-20] MEDS: Magnesium Hydrox/Alum Hydrox 30 ML ORAL.SUSP PO (02:00)
[2022-04-20] MEDS: Famotidine/PF 20 MG/2 ML VIAL IVPUSH (02:00)
[2022-04-20] MEDS: 0.9 % Sodium Chloride 1,000 ML 999 ML IV (02:00)
[2022-04-20 02:18] LABS: Basophils Percent Auto 0.3 % (0-2); Eosinophils Percent Auto 0.2 % (0-4); Hematocrit 42.2 % (37.0-47.0); Hemoglobin 14.1 g/dl (12.0-16.0); Imm Gran Abs Auto 0.08 X10*3/uL (0.00-0.03); Imm Gran Pct Auto 0.5 % (0.0-0.4); Lymphocytes Absolute Auto 0.5 X10*3/uL (1.2-4.9); Lymphocytes Percent Auto 3.2 % (20-40); MANUAL DIFF FLAG SCAN; Mean Corpuscular HGB Conc 33.4 g/dl (31.0-35.0); Mean Corpuscular Hemoglobin 30.8 pg (27.0-33.0); Mean Corpuscular Volume 92.1 fL (80.0-98.0); Mean Platelet Volume 10.5 fL (9.4-12.3); Monocytes Absolute Auto 0.6 X10*3/uL (0.1-1.2); Monocytes Percent Auto 3.6 % (2-11); Neutrophils Absolute Auto 14.7 x10*3/uL (2.0-8.3); Neutrophils Percent Auto 92.2 % (45-73); Platelet Count 239 X10*3/uL (160-400); Red Blood Count 4.58 X10*6/uL (4.20-5.50); Red Cell Distribution Width 14.4 % (11.0-16.0); SCAN SMEAR FLAG 1; White Blood Count 15.9 X10*3/uL (4.8-10.8)
[2022-04-20 02:33] LABS: Alanine Aminotransferase 22 U/L (0-31); Albumin Level 4.4 g/dL (3.5-5.0); Alkaline Phosphatase 83 U/L (39-117); Anion Gap 13 (12-20); Aspartate Amino Transferase 24 U/L (5-31); Bilirubin Direct 0.2 mg/dL (0.0-0.5); Bilirubin Total 0.8 mg/dL (0.0-1.0); Blood Urea Nitrogen 16 mg/dL (9-16); Calcium 9.2 mg/dL (8.4-10.2); Carbon Dioxide 23 mmol/L (22-29); Chloride 107 mmol/L (96-108); Creatinine Clr Calc Pharmacy 77.4; Estimated Glomerular Filt Rate 58; Glucose Random 127 mg/dL (60-115); Lipase 17 U/L (8-78); Potassium 3.9 mmol/L (3.3-5.1); Sodium 139 mmol/L (135-145); Total Protein 7.8 g/dL (6.5-8.0)
[2022-04-20 02:40] LABS: SLIDE REVIEW VERIFIED
--- NOTE | 2022-04-20 02:46 | PC.NURSE ---
late entry- iv placed. pt medicated according t jun. pt provided with warm blanket per request
--- NOTE | 2022-04-20 03:58 | PC.NURSE ---
iv removed at time of discharge. pt reports 0/10 pain. pt ambulatory at this time. pt provided with discharge packet. pt verbalizes understanding of discharge plan.
== END 2022-04-20 03:59 | disposition home or self-care (01) ==
PROVIDERS: Emergency Provider Emergency Medicine
DX: K52.9 Noninfective gastroenteritis and colitis, unspecified (principal); R11.2 Nausea with vomiting, unspecified
CPT/HCPCS: 36415; 80048; 80076; 83690; 85025; 96361; 96374; 96375; 99284; J2405

== ENCOUNTER 2022-08-12 13:29 | Outpatient (REF) | payer OTHER, SELFPAY ==
--- NOTE | ~2022-08-12 | MM_ITS ---
EXAMINATION: MM DIAGNOSTIC DIGITAL BREAST TOMOSYNTHESIS, RIGHT CLINICAL INFORMATION: Short interval six-month follow-up asymmetric density posterior outer right breast, suspected summation artifact. The lifetime risk of breast cancer based on the Tyrer-Cuzick Model is 13%. COMPARISON: Mammography: 02/11/2022, 02/08/2022 (BI-RADS 0), 02/05/2021, 01/26/2019, 11/23/2016, 02/28/2015; ultrasound right breast 02/11/2022. TECHNIQUE: Digital breast tomosynthesis is performed in both the craniocaudal and mediolateral oblique views along with computer-aided detection (CAD). Synthesized 2D images are generated from the tomosynthesis. Additional views are obtained: Spot CC, spot MLO, standard ML. FINDINGS: There are scattered areas of fibroglandular density (ACR BI-RADS breast composition Category b). Fibroglandular densities are similar to prior exam and there is no developing density or interval mass or architectural abnormality. There is no skin thickening or coarsening of the stromal markings. The axilla is unremarkable. Right breast will be reassessed at time of annual bilateral mammography, due in 6 months. Results are provided to the patient at time of visit by the technologist. MM/MM tomosynthesis diagnostic RT IMPRESSION: -No significant changes from prior exam. -No developing density or interval mass or architectural abnormality. ASSESSMENT: BI-RADS 3: Probably Benign RECOMMENDATION: Diagnostic mammography at time of annual bilateral exam, due in 6 months. This patient's information was entered into a reminder system with a target due date for their next mammogram.
== END 2022-08-12 13:30 | disposition home or self-care (01) ==
LOC: HO.MAMMO 13:29
PROVIDERS: PCP Registered Nurse; Visit Provider Registered Nurse
DX: R92.2 Inconclusive mammogram (principal)
CPT/HCPCS: 77061; 77065

== ENCOUNTER 2022-12-16 10:44 | Emergency (ER) | payer OTHER, SELFPAY ==
--- NOTE | ~2022-12-16 | US_ITS ---
EXAMINATION: US PELVIS CLINICAL INFORMATION: Vaginal bleeding, lower abdominal pain. COMPARISON: None available. TECHNIQUE: Ultrasound of the pelvis is performed using both transabdominal and transvaginal transducers along with Doppler. Transvaginal imaging is performed due to inadequate visualization transabdominally. FINDINGS: Uterus: The uterus is anteverted, anteflexed and measures 9.7 x 4.8 x 5.2 cm. The double wall endometrial thickness is 0.4 cm. Normal vascularity seen in the endometrium. The uterus is smooth in contour and has normal myometrial echogenicity. There is a hypoechoic lesion in the anterior upper uterus measuring 1.1 x 0.7 x 1.1 cm suggestive of fibroid.. There are small nabothian cysts seen in the cervix. Adnexa: Both ovaries are visualized. There is normal color flow to the adnexa. There is no ovarian torsion. There is no pelvic ascites or fluid collection. Right ovary measures 2.5 x 1.8 x 1.5 cm and volume 3.5 mL. Left ovary measures measures 2.2 x 1.2 x 1.7 cm and best visualized transabdominally. No focal lesion seen. US/US pelvic ovarian doppler IMPRESSION: 1. Small uterine fibroid. 2. Small nabothian cysts in the cervix. 3. The ovaries are unremarkable. Normal color flow and Doppler visualized to both ovaries
--- NOTE | ~2022-12-16 | US_ITS ---
EXAMINATION: US PELVIS CLINICAL INFORMATION: Vaginal bleeding, lower abdominal pain. COMPARISON: None available. TECHNIQUE: Ultrasound of the pelvis is performed using both transabdominal and transvaginal transducers along with Doppler. Transvaginal imaging is performed due to inadequate visualization transabdominally. FINDINGS: Uterus: The uterus is anteverted, anteflexed and measures 9.7 x 4.8 x 5.2 cm. The double wall endometrial thickness is 0.4 cm. Normal vascularity seen in the endometrium. The uterus is smooth in contour and has normal myometrial echogenicity. There is a hypoechoic lesion in the anterior upper uterus measuring 1.1 x 0.7 x 1.1 cm suggestive of fibroid.. There are small nabothian cysts seen in the cervix. Adnexa: Both ovaries are visualized. There is normal color flow to the adnexa. There is no ovarian torsion. There is no pelvic ascites or fluid collection. Right ovary measures 2.5 x 1.8 x 1.5 cm and volume 3.5 mL. Left ovary measures measures 2.2 x 1.2 x 1.7 cm and best visualized transabdominally. No focal lesion seen. US/US pelvic and transvaginal IMPRESSION: 1. Small uterine fibroid. 2. Small nabothian cysts in the cervix. 3. The ovaries are unremarkable. Normal color flow and Doppler visualized to both ovaries
[2022-12-16 11:15] VITALS: BP 134/85; PULSE 78; RESP 18; TEMP 36.3; O2SAT 99; BMI 31.1
--- NOTE | 2022-12-16 11:21 | ED_ITS ---
HPI - Female Genitourinary General Chief complaint: Vaginal Bleeding Stated complaint: vaginal bleeding Time Seen by Provider: 12/16/22 14:24 Source: patient and old records reviewed Mode of arrival: ambulatory Limitations: no limitations History of Present Illness HPI Narrative: 42-year-old female with history of HLD, polyarthralgia, hypothyroidism, HIV on HAART who presents to the ER for evaluation of irregular and heavy vaginal bleeding for the last 1 month. Patient states she has had her menstrual cycle since age 9, usually lasting once a month and lasts 8-10 days. He is usually pretty heavy. She states since November she has had recurrent bouts of heavy vaginal bleeding, passing clots. Will resolve for 5 days and then return. She is currently on day 3 of heavy bleeding. She states she is going through several pads per day. She also reports pelvic pain in cramping along with suprapubic pain. She denies any urinary symptoms. She denies any vaginal discharge. She denies any nausea or vomiting. She states lately she has been little lightheaded and dizzy with the bleeding. She follows with her primary care doctor at [facility] for gynecology. MD elicited complaint: vaginal bleeding Onset (ago): week(s) Location of symptoms: vaginal Severity: moderate Quality of pain: cramping Consistency: intermittent Vaginal discharge: none Vaginal bleeding: heavy and clots Exacerbating factors: none Relieving factors: none Associated symptoms: abdominal pain Treatment prior to arrival: none Sexual activity: Yes Patient : No Related Data Home Medications Medication Instructions Recorded Confirmed albuterol sulfate 90 mcg/actuation 2 puff inhalation QID PRN wheezing 03/19/20 03/19/20 aerosol inhaler bictegravir 50 mg-emtricitabine 1 tab PO DAILY 03/19/20 03/19/20 200 mg-tenofovir alafenam 25 mg tablet docusate sodium 100 mg capsule 100 mg PO DAILY 03/19/20 03/19/20 gabapentin 100 mg capsule 200 mg PO TID 03/19/20 03/19/20 loratadine 10 mg tablet 10 mg PO DAILY 03/19/20 03/19/20 montelukast 10 mg tablet 10 mg PO DAILY 03/19/20 03/19/20 nabumetone 500 mg tablet 500 mg PO BID 03/19/20 03/19/20 naratriptan 2.5 mg tablet 2.5 mg PO DAILY 03/19/20 03/19/20 pantoprazole 40 mg tablet,delayed 40 mg PO DAILY 03/19/20 03/19/20 release sennosides 8.6 mg tablet (Natural 8.6 mg PO BEDTIME 03/19/20 03/19/20 Senna Laxative) topiramate 50 mg tablet 50 mg PO 03/19/20 03/19/20 Previous Rx's Medication Instructions Recorded ondansetron 4 mg disintegrating 4 mg PO Q8H PRN nausea and 03/24/20 tablet vomiting #20 tabs promethazine 25 mg rectal 25 mg DE Q6H PRN nausea and 03/24/20 suppository vomiting #12 ea rmgxhbsdxx-skwttsjnyqroy-ctavvcqx 1 tab PO Q6H PRN pain #20 tabs 03/26/20 50 mg-325 mg-40 mg tablet cyclobenzaprine 10 mg tablet 10 mg PO TID PRN muscle spasm #14 03/26/20 tabs levothyroxine 200 mcg tablet 200 mcg PO DAILY 90 days #90 tabs 06/11/20 ezetimibe 10 mg tablet (Zetia) 10 mg PO DAILY 30 days #30 tabs 09/15/20 pravastatin 10 mg tablet 10 mg PO BEDTIME 30 days #30 tabs 09/15/20 ondansetron HCl 4 mg tablet 4 mg PO Q8H 3 days #9 tabs 11/23/20 (Zofran) cyclobenzaprine 10 mg tablet 10 mg PO TID PRN muscle spasm 7 08/05/21 days #21 tabs prednisone 20 mg tablet 40 mg (2 x 20 mg) PO DAILY 5 days 08/05/21 #10 tabs Allergies Allergy/AdvReac Type Severity Reaction Status Date / Time Iodinated Contrast Media Allergy Severe ANAPHYLAXIS Verified 06/10/20 15:31 [IV CONTRAST] rosuvastatin [From CRESTOR] Allergy Severe SWELLING, Verified 06/10/20 15:31 vomiting egg Allergy Vomiting Verified 12/16/22 11:13 Milk Containing Products Allergy Diarrhea Verified 12/16/22 11:15 (Dairy) pineapple Allergy Swelling Verified 12/16/22 11:15 CT Scan Dye and Iodinated Allergy Unknown anaphylaxis Uncoded 10/25/19 00:00 Cont Review of Systems 2 Review of Systems: Yes all other systems are reviewed and are negative PMFSH Past Medical History Medical History Dyslipidemia HIV (human immunodeficiency virus infection) Hypothyroidism Surgical History Hx of right breast biopsy Hx of tubal ligation Family History Family History Father CVA (cerebral vascular accident) Diabetes Mother Cervical cancer Social History Social History Alcohol intake: never Patient Tobacco Use Status: Former Tobacco user Substance Use Type: Marijuana Advance Directives: No Patient : No Physical Exam 2 Vital Signs: Vital Signs: Last Vital Signs Temp 97.4 F 12/16/22 11:15 Pulse 78 12/16/22 11:15 Resp 18 12/16/22 11:15 BP 134/85 12/16/22 11:15 Pulse Ox 99 12/16/22 11:15 O2 Del Method Room Air 12/16/22 11:15 BMI result Body Mass Index 31.1 Appearance: Alert. Oriented X3. No acute distress. Head: normocephalic, atraumatic. Eyes: Pupils equal, round and reactive to light. ENT: Pharynx normal. No tonsillar swelling or exudate. Neck: Normal inspection. Neck supple. CVS: Normal heart rate and rhythm. Pulses normal. Respiratory: No respiratory distress. Breath sounds normal. Abdomen: Soft and nontender. +BS x4. Pelvic deferred per patient request Skin: Skin warm and dry. Normal skin color. Normal skin turgor. No rashes. Extremities: No lower extremity edema. No joint swelling. Neuro/psych: Oriented X 3. No motor deficit. No sensory deficit. CN II-XII intact. Normal speech and cognition. Course Course Course Narrative: SHARRON 11:21pm - 42yoF presenting to the ED wit c/o of vaginal bleeding intermittently over the past month that is irregular for her. Also reports suprapubic abdominal tenderness for the past 3 weeks. Reports associated lightheadedness, dizziness, headaches. Reports she intermittently has clots. Reports this has never happened to her in the past. On exam patient is alert oriented x3. Not in any acute distress. Vital signs are stable within normal limits. Patient is stable to go back to the waiting room to be evaluated in the ED. Plan: Labs, UA, test, ultrasound transvaginal/Doppler. Patient to be assessed by provider in ED H&P to be referred to them. Medical Decision Making Medical Decision Making [facility] Narrative: 42-year-old female presents to the ER for evaluation of irregular and heavy vaginal bleeding for the last 1 month. It is intermittent. She also has associated pelvic and suprapubic pains. She feels like her left ovary might be swollen. She denies any vaginal discharge or concern for STI. Lab workup today is showing normal H&H, no anemia. Pelvic ultrasound is showing small uterine fibroid, normal ovaries and normal flow. She is declining pelvic exam today. declining need for STI testing. Her UA is negative. She would like to be discharged home and follow up with her own doctor. does not want referral to [facility] here. comfortable w/ discharge as she is hemodynamically stable without acute blood loss anemia. Differential Diagnosis Differential Diagnoses: The differential diagnosis associated with the presentation includes Dysfunctional uterine bleeding, menometrorrhagia, uterine fibroids, less likely STI or PID Admission/Observation Consideration of admission/observation: Escalation of care including admission/observation considered Concern was for acute blood loss anemia and symptomatic anemia with her lightheadedness and dizziness however H&H were normal. No active hemorrhaging Lab Data [facility] Lab Attestation statement: I reviewed the patient's lab results. No anemia, normal platelets. 12/16/22 11:27 12/16/22 11:27 Labs: Lab Results 12/16/22 12/16/22 Range/Units 11:27 14:51 WBC 7.6 (4.8-10.8) X10*3/uL RBC 4.32 (4.20-5.50) X10*6/uL Hgb 13.4 (12.0-16.0) g/dl Hct 40.6 (37.0-47.0) % MCV 94.0 (80.0-98.0) fL MCH 31.0 (27.0-33.0) pg MCHC 33.0 (31.0-35.0) g/dl RDW 13.7 (11.0-16.0) % Plt Count 225 (160-400) X10*3/uL MPV 10.8 (9.4-12.3) fL Immature Gran % (Auto) 0.4 (0.0-0.4) % Neut % (Auto) 59.7 (45-73) % Lymph % (Auto) 29.7 (20-40) % Rhea % (Auto) 8.1 (2-11) % Eos % (Auto) 1.3 (0-4) % Baso % (Auto) 0.8 (0-2) % Lymph # (Auto) 2.3 (1.2-4.9) X10*3/uL Rhea # (Auto) 0.6 (0.1-1.2) X10*3/uL Eos # (Auto) 0.1 (0.0-0.4) X10*3/uL Baso # (Auto) 0.1 (0.0-0.2) X10*3/uL Abs Immat Gran (auto) 0.03 (0.00-0.03) X10*3/uL Absolute Neuts (auto) 4.5 (2.0-8.3) x10*3/uL Absolute Nucleated RBC 0.000 (0.0-0.012) X10*3/uL Nucleated RBC % (auto) 0.0 (0.0-0.2) /100WBC Sodium 138 (135-145) mmol/L Potassium 4.3 (3.3-5.1) mmol/L Chloride 108 (96-108) mmol/L Carbon Dioxide 25 (22-29) mmol/L Anion Gap 9 L (12-20) BUN 10 (9-16) mg/dL Creatinine 0.98 (0.5-1.4) mg/dL Estim Creat Clear Calc 80.3 Estimated GFR > 60 Random Glucose 97 (60-115) mg/dL Calcium 9.0 (8.4-10.2) mg/dL Magnesium 1.9 (1.6-2.6) mg/dL Total Bilirubin 0.3 (0.0-1.0) mg/dL AST 21 (5-31) U/L ALT 15 (0-31) U/L Alkaline Phosphatase 83 (39-117) U/L Total Protein 6.9 (6.5-8.0) g/dL Albumin 3.8 (3.5-5.0) g/dL Beta HCG, Quant < 2 mIU/mL Urine Color Yellow Urine Appearance Clear Urine pH 6.5 (5.0-9.0) Ur Specific [place] 1.015 (1.005-1.025) Urine Protein Trace (Neg-Trace) mg/dL Urine Glucose (UA) Negative (Negative) mg/dL Urine Ketones Negative (Negative) mg/dL Urine Blood Large (3+) H (Negative) Urine Nitrite Negative (Negative) Ur Leukocyte Esterase Trace H (Negative) Urine RBC >20 H (0-2) /HPF Urine WBC 0-5 (0-5) /HPF Ur Squamous Epith Cells 0-2 (0-2) /HPF Urine Bacteria None Seen (None Seen) Hyaline Casts 0-2 (0-2) /LPF Independent Interpretation I performed an independent interpretation of an: Ultrasound Interpretation: Ultrasound reviewed, normal flow appreciated to both ovaries, agree with radiologist read Radiology Impression Discussion of test interpretation with radiology: I have reviewed the radiologist's reading. Radiologist Impression: US/US pelvic and transvaginal IMPRESSION: 1. Small uterine fibroid. 2. Small nabothian cysts in the cervix. 3. The ovaries are unremarkable. Normal color flow and Doppler visualized to both ovaries External Record Review External record reviewed: Prior outpatient labs and Prior outpatient radiology Prescription Management I considered prescription management with: Pain Medication Chronic Conditions Patient?s care impacted by: Other (HIV) Critical Care Time Critical Care Time Critical Care Time: No Discharge Plan Discharge Clinical Impression: Dysfunctional uterine bleeding, Fibroid, uterine Patient Disposition: Home, Self-Care Instructions: Dysfunctional Uterine Bleeding (ED) Additional Instructions: Your blood count today were normal, no anemia. US/US pelvic and transvaginal IMPRESSION: 1. Small uterine fibroid. 2. Small nabothian cysts in the cervix. 3. The ovaries are unremarkable. Normal color flow and Doppler visualized to both ovaries Recommend following up with your doctor for further evaluation and treatment. If you develop new or worsening symptoms call 911 or come back to the ER for further evaluation. Prescriptions: No Action levothyroxine 200 mcg tablet 200 mcg PO DAILY 90 Days Qty: 90 1RF ezetimibe [Zetia] 10 mg tablet 10 mg PO DAILY 30 Days Qty: 30 2RF pravastatin 10 mg tablet 10 mg PO BEDTIME 30 Days Qty: 30 2RF ondansetron HCl [Zofran] 4 mg tablet 4 mg PO Q8H 3 Days Qty: 9 0RF promethazine 25 mg suppository 25 mg DE Q6H PRN (Reason: nausea and vomiting) Qty: 12 0RF ondansetron 4 mg tablet,disintegrating 4 mg PO Q8H PRN (Reason: nausea and vomiting) Qty: 20 0RF cyclobenzaprine 10 mg tablet 10 mg PO TID PRN (Reason: muscle spasm) Qty: 14 0RF vucajplrhv-rzcveaiquzrnb-wnxb 50-325-40 mg tablet 1 tab PO Q6H PRN (Reason: pain) Qty: 20 0RF prednisone 20 mg tablet 40 mg PO DAILY 5 Days Qty: 10 0RF cyclobenzaprine 10 mg tablet 10 mg PO TID PRN (Reason: muscle spasm) 7 Days Qty: 21 0RF Rx Instructions: side effect is drowsiness. Do not take at work or while driving. loratadine 10 mg tablet 10 mg PO DAILY topiramate 50 mg tablet 50 mg PO Biktarvy 50-200-25 mg tablet 1 tab PO DAILY naratriptan 2.5 mg tablet 2.5 mg PO DAILY pantoprazole 40 mg tablet,delayed release (DR/EC) 40 mg PO DAILY montelukast 10 mg tablet 10 mg PO DAILY albuterol sulfate 90 mcg/actuation HFA aerosol inhaler 2 puff inhalation QID PRN (Reason: wheezing) nabumetone 500 mg tablet 500 mg PO BID gabapentin 100 mg capsule 200 mg PO TID sennosides [Natural Senna Laxative] 8.6 mg tablet 8.6 mg PO BEDTIME docusate sodium 100 mg capsule 100 mg PO DAILY Referrals: [facility] [Primary Care Provider] - Interventions: ED Discharge Assessment Last Done: 12/16/22 15:34 Discharge Date/Time: 12/16/22 15:34
[2022-12-16 11:31] LABS: MANUAL DIFF FLAG NO
[2022-12-16 11:36] LABS: Basophils Absolute Auto 0.1 X10*3/uL (0.0-0.2); Basophils Percent Auto 0.8 % (0-2); Eosinophils Absolute Auto 0.1 X10*3/uL (0.0-0.4); Eosinophils Percent Auto 1.3 % (0-4); Hematocrit 40.6 % (37.0-47.0); Hemoglobin 13.4 g/dl (12.0-16.0); Imm Gran Abs Auto 0.03 X10*3/uL (0.00-0.03); Imm Gran Pct Auto 0.4 % (0.0-0.4); Lymphocytes Absolute Auto 2.3 X10*3/uL (1.2-4.9); Lymphocytes Percent Auto 29.7 % (20-40); Mean Platelet Volume 10.8 fL (9.4-12.3); Monocytes Absolute Auto 0.6 X10*3/uL (0.1-1.2); Monocytes Percent Auto 8.1 % (2-11); Neutrophils Absolute Auto 4.5 x10*3/uL (2.0-8.3); Neutrophils Percent Auto 59.7 % (45-73); Platelet Count 225 X10*3/uL (160-400); Red Blood Count 4.32 X10*6/uL (4.20-5.50); Red Cell Distribution Width 13.7 % (11.0-16.0); White Blood Count 7.6 X10*3/uL (4.8-10.8)
[2022-12-16 12:01] LABS: Alanine Aminotransferase 15 U/L (0-31); Albumin Level 3.8 g/dL (3.5-5.0); Alkaline Phosphatase 83 U/L (39-117); Anion Gap 9 (12-20); Aspartate Amino Transferase 21 U/L (5-31); Bilirubin Total 0.3 mg/dL (0.0-1.0); Blood Urea Nitrogen 10 mg/dL (9-16); Carbon Dioxide 25 mmol/L (22-29); Chloride 108 mmol/L (96-108); Creatinine Clr Calc Pharmacy 80.3; Estimated Glomerular Filt Rate > 60; Glucose Random 97 mg/dL (60-115); HCG Quantitative < 2 mIU/mL; Magnesium 1.9 mg/dL (1.6-2.6); Potassium 4.3 mmol/L (3.3-5.1); Sodium 138 mmol/L (135-145); Total Protein 6.9 g/dL (6.5-8.0)
[2022-12-16 15:24] LABS: Appearance Urine Clear; Color Urine Yellow; Glucose Urine UA Negative (Negative); Leukocyte Esterase Urine Trace (Negative); Nitrite Urine Negative (Negative); PH 6.5 (5.0-9.0); Specific Gravity - Urine 1.015 (1.005-1.025); UMIC TRIGGER UACC YES; Urine Blood Large (3+) (Negative); Urine Ketones Negative (Negative); Urine Protein Trace mg/dL (Neg-Trace)
[2022-12-16 15:29] LABS: Bacteria Urine None Seen (None Seen); Hyaline Casts Urine 0-2 /LPF (0-2); RBC Urine >20 /HPF (0-2); Squamous Epithelial Cell Urine 0-2 /HPF (0-2); WBC Urine 0-5 /HPF (0-5)
== END 2022-12-16 15:34 | disposition home or self-care (01) ==
PROVIDERS: Physician Assistant Medical; Emergency Provider Emergency Medicine
DX: D25.9 Leiomyoma of uterus, unspecified (principal); N93.8 Other specified abnormal uterine and vaginal bleeding; R10.2 Pelvic and perineal pain; Z87.891 Personal history of nicotine dependence; Z79.899 Other long term (current) drug therapy
CPT/HCPCS: 36415; 76830; 76856; 80053; 81001; 81003; 83735; 84702; 85025; 93975; 99282; 99284

== ENCOUNTER 2022-12-27 12:45 | Outpatient (REF) | payer OTHER, SELFPAY ==
[2022-12-27 15:02] LABS: TSH reflex Free T4 0.12 uIU/mL (0.32-4.0)
[2022-12-27 15:41] LABS: Free T4 (Free Thyroxine) 1.27 ng/dL (0.71-1.85)
[2022-12-30 12:49] LABS: Von Willebrand Factor Antigen 98 % (50-217)
== END 2022-12-27 12:46 | disposition home or self-care (01) ==
LOC: HO.CHCLDS 12:45
PROVIDERS: Visit Provider Family Medicine
DX: N93.9 Abnormal uterine and vaginal bleeding, unspecified (principal)
CPT/HCPCS: 36415; 84146; 84439; 84443; 85246

== ENCOUNTER 2023-01-14 14:20 | Outpatient (REF) | payer OTHER, SELFPAY | END 2023-01-14 14:21 | disposition home or self-care (01) | LOC: HO.MAMMO 14:20 | PROVIDERS: PCP Family Medicine; Visit Provider Family Medicine | DX: N63.15 Unspecified lump in the right breast, overlapping quadrants (principal); N63.21 Unspecified lump in the left breast, upper outer quadrant | CPT/HCPCS: 76642; 77062; 77066 ==

== ENCOUNTER → 2023-01-14 14:30 | Outpatient (BNV) | payer OTHER, SELFPAY | PROVIDERS: PCP Family Medicine; Visit Provider Radiology Diagnostic Radiology | DX: R92.323 Mammographic fibroglandular density, bilateral breasts (principal) | CPT/HCPCS: 76642; 77062; 77066 ==

== ENCOUNTER 2023-02-11 08:33 | Outpatient (REF) | payer OTHER, SELFPAY ==
[2023-02-11 11:31] LABS: Appearance Urine Clear; Color Urine Yellow; Glucose Urine UA Negative (Negative); Leukocyte Esterase Urine Negative (Negative); Nitrite Urine Negative (Negative); PH 5.5 (5.0-9.0); UMIC TRIGGER UACC YES; Urine Blood Negative (Negative); Urine Ketones Negative (Negative); Urine Protein 30 (1+) mg/dL (Neg-Trace)
[2023-02-11 11:35] LABS: Bacteria Urine None Seen (None Seen); Hyaline Casts Urine 0-2 /LPF (0-2); RBC Urine 0-2 /HPF (0-2); Squamous Epithelial Cell Urine 0-2 /HPF (0-2); WBC Urine 0-5 /HPF (0-5)
[2023-02-11 12:01] LABS: Cholesterol 214 mg/dL (<200); HDL Cholesterol 37 mg/dL (>40); LDL Cholesterol Calculated 150 mg/dL (<100); Triglycerides 138 mg/dL (<150)
[2023-02-11 12:48] LABS: Reflex LDLD? No
[2023-02-13 18:18] LABS: TS Negative Control Passed; TS Panel A 0; TS Panel B 1; TS Positive Control Passed; TSpotTB Negative (Negative)
[2023-02-14 09:29] LABS: RPR Rapid Plasma Reagin NON-REACTIVE (NON-REACTIVE)
[2023-02-15 16:04] LABS: HIV RNA PCR Qn Copies <20 DETECTED copies/mL (NOT DETECTED); HIV RNA PCR Qn Log Copies <1.30 DETECTED (NOT DETECTED)
== END 2023-02-11 08:34 | disposition home or self-care (01) ==
LOC: HO.HHCL 08:33
PROVIDERS: Visit Provider Internal Medicine
DX: B20 Human immunodeficiency virus [HIV] disease (principal)
CPT/HCPCS: 36415; 80061; 81001; 86481; 86592; 87536

== ENCOUNTER 2023-04-21 13:27 | Emergency (ER) | payer OTHER, SELFPAY ==
--- NOTE | ~2023-04-21 | XR_ITS ---
EXAMINATION: XR FOOT, RIGHT CLINICAL INFORMATION: Foot injury COMPARISON: None available. TECHNIQUE: AP, lateral, and oblique views of the right foot. FINDINGS: No acute visible fracture or dislocation. Joint spaces and alignment are maintained. Soft tissues are unremarkable. XR/XR foot RT min 3V IMPRESSION: No acute visible fracture or dislocation.
[2023-04-21 14:13] VITALS: BP 160/85; PULSE 76; RESP 19; TEMP 36.6; O2SAT 98; BMI 30.8
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
== END 2023-04-21 16:00 | disposition home or self-care (01) ==
LOC: HO.ED 16:00
PROVIDERS: Emergency Provider Student in an Organized Health Care Education/Training Program; PCP Registered Nurse
DX: S96.911A Strain of unspecified muscle and tendon at ankle and foot level, right foot, initial encounter (principal); X50.0XXA Overexertion from strenuous movement or load, initial encounter; Y93.89 Activity, other specified; Y92.414 Local residential or business street as the place of occurrence of the external cause; Y99.9 Unspecified external cause status
CPT/HCPCS: 73630; 99282; 99283

== ENCOUNTER 2023-11-01 14:25 | Outpatient (REF) | payer OTHER, SELFPAY ==
[2023-11-01 15:59] LABS: MANUAL DIFF FLAG NO
[2023-11-01 16:09] LABS: Basophils Absolute Auto 0.1 X10*3/uL (0.0-0.2); Eosinophils Absolute Auto 0.1 X10*3/uL (0.0-0.4); Eosinophils Percent Auto 1.8 % (0-4); Hematocrit 40.1 % (37.0-47.0); Hemoglobin 13.5 g/dl (12.0-16.0); Imm Gran Abs Auto 0.03 X10*3/uL (0.00-0.03); Imm Gran Pct Auto 0.4 % (0.0-0.4); Lymphocytes Absolute Auto 2.1 X10*3/uL (1.2-4.9); Lymphocytes Percent Auto 31.7 % (20-40); Mean Corpuscular HGB Conc 33.7 g/dl (31.0-35.0); Mean Corpuscular Hemoglobin 32.8 pg (27.0-33.0); Mean Corpuscular Volume 97.6 fL (80.0-98.0); Mean Platelet Volume 11.4 fL (9.4-12.3); Monocytes Absolute Auto 0.6 X10*3/uL (0.1-1.2); Monocytes Percent Auto 8.3 % (2-11); Neutrophils Absolute Auto 3.8 x10*3/uL (2.0-8.3); Neutrophils Percent Auto 56.8 % (45-73); Platelet Count 229 X10*3/uL (160-400); Red Blood Count 4.11 X10*6/uL (4.20-5.50); Red Cell Distribution Width 13.6 % (11.0-16.0); White Blood Count 6.7 X10*3/uL (4.8-10.8)
[2023-11-01 16:41] LABS: Alanine Aminotransferase 17 U/L (0-31); Albumin Level 4.3 g/dL (3.5-5.0); Alkaline Phosphatase 69 U/L (39-117); Anion Gap 12 (12-20); Aspartate Amino Transferase 27 U/L (5-31); Bilirubin Total 0.3 mg/dL (0.0-1.0); Blood Urea Nitrogen 11 mg/dL (9-16); Calcium 9.6 mg/dL (8.4-10.2); Carbon Dioxide 25 mmol/L (22-29); Chloride 104 mmol/L (96-108); Estimated Glomerular Filt Rate 43; Glucose Random 75 mg/dL (60-115); Potassium 3.6 mmol/L (3.3-5.1); Sodium 137 mmol/L (135-145); Total Protein 7.6 g/dL (6.5-8.0)
[2023-11-02 08:58] LABS: ~HepC Num1 0.11 S/CO (0.00-0.79); ~Hepatitis C Antibody Nonreactive (Nonreactive)
[2023-11-04 17:23] LABS: Absolute CD3 Count 1758 cells/uL (840-3060); Absolute CD4 Count 614 cells/uL (490-1740); Absolute CD8 Count 1155 cells/uL (180-1170); Absolute Lymphocytes 2245 cells/uL (850-3900); CD4 CD8 Ratio 0.53 (0.86-5.00); Percent CD3 Cells 78 % (57-85); Percent CD4 Cells 27 % (30-61); Percent CD8 Cells 51 % (12-42)
[2023-11-04 18:23] LABS: HIV RNA PCR Qn Copies 102 copies/mL (NOT DETECTED); HIV RNA PCR Qn Log Copies 2.01 (NOT DETECTED)
== END 2023-11-01 14:26 | disposition home or self-care (01) ==
LOC: HO.HHCL 14:25
PROVIDERS: Visit Provider Internal Medicine
DX: B20 Human immunodeficiency virus [HIV] disease (principal)
CPT/HCPCS: 36415; 80053; 85025; 86359; 86360; 86803; 87536

== ENCOUNTER 2024-01-20 09:41 | Outpatient (REF) | payer OTHER, SELFPAY ==
--- NOTE | ~2024-01-20 | MM_ITS ---
EXAMINATION: MM SCREENING DIGITAL BREAST TOMOSYNTHESIS, BILATERAL CLINICAL INFORMATION: Screening. Asymptomatic. COMPARISON: Mammography: Comparison is made with available priors TECHNIQUE: Digital breast mammography with tomosynthesis is performed in both the craniocaudal and mediolateral oblique views along with computer-aided detection (CAD). FINDINGS: There are scattered areas of fibroglandular density (ACR BI-RADS breast composition Category b). There are no significant masses, abnormal calcifications, or other abnormalities. MM/MM tomosynthesis screening BI IMPRESSION: No mammographic evidence of malignancy. ASSESSMENT: BI-RADS BI-RADS 1 - Negative RECOMMENDATION: Routine annual mammography screening. 1 year F/U This examination should not preclude the clinical evaluation of a suspicious palpable abnormality. This patient's information was entered into a reminder system with a target due date for their next mammogram. Electronically signed by: Therese Ceja DO 02/01/2024 08:00 AM EDT
== END 2024-01-20 09:42 | disposition home or self-care (01) ==
LOC: HO.MAMMO 09:41
PROVIDERS: PCP Registered Nurse; Visit Provider Registered Nurse
DX: Z12.31 Encounter for screening mammogram for malignant neoplasm of breast (principal)
CPT/HCPCS: 77063; 77067

== ENCOUNTER → 2024-01-20 09:45 | Outpatient (BNV) | payer OTHER, SELFPAY | PROVIDERS: PCP Registered Nurse; Visit Provider Internal Medicine | DX: Z12.31 Encounter for screening mammogram for malignant neoplasm of breast (principal) | CPT/HCPCS: 77063; 77067 ==

== ENCOUNTER 2024-02-15 09:34 | Outpatient (REF) | payer OTHER, SELFPAY ==
[2024-02-15 14:28] LABS: MANUAL DIFF FLAG NO
[2024-02-15 14:34] LABS: Basophils Absolute Auto 0.1 X10*3/uL (0.0-0.2); Basophils Percent Auto 0.7 % (0-2); Eosinophils Absolute Auto 0.1 X10*3/uL (0.0-0.4); Eosinophils Percent Auto 1.3 % (0-4); Hematocrit 37.3 % (37.0-47.0); Hemoglobin 12.3 g/dl (12.0-16.0); Imm Gran Abs Auto 0.03 X10*3/uL (0.00-0.03); Imm Gran Pct Auto 0.4 % (0.0-0.4); Lymphocytes Absolute Auto 1.9 X10*3/uL (1.2-4.9); Lymphocytes Percent Auto 27.6 % (20-40); Mean Corpuscular Hemoglobin 32.3 pg (27.0-33.0); Mean Corpuscular Volume 97.9 fL (80.0-98.0); Mean Platelet Volume 11.5 fL (9.4-12.3); Monocytes Absolute Auto 0.5 X10*3/uL (0.1-1.2); Monocytes Percent Auto 7.9 % (2-11); Neutrophils Absolute Auto 4.3 x10*3/uL (2.0-8.3); Neutrophils Percent Auto 62.1 % (45-73); Platelet Count 223 X10*3/uL (160-400); Red Blood Count 3.81 X10*6/uL (4.20-5.50); Red Cell Distribution Width 13.9 % (11.0-16.0); White Blood Count 6.9 X10*3/uL (4.8-10.8)
[2024-02-15 14:42] LABS: Estimated Average Glucose 108 mg/dL; Hemoglobin A1c % 5.4 % (<6.0)
[2024-02-15 14:56] LABS: Alanine Aminotransferase 22 U/L (0-31); Albumin Level 3.9 g/dL (3.5-5.0); Alkaline Phosphatase 71 U/L (39-117); Anion Gap 7 (12-20); Aspartate Amino Transferase 27 U/L (5-31); Bilirubin Total 0.2 mg/dL (0.0-1.0); Blood Urea Nitrogen 15 mg/dL (9-16); Calcium 9.1 mg/dL (8.4-10.2); Carbon Dioxide 27 mmol/L (22-29); Chloride 108 mmol/L (96-108); Cholesterol 230 mg/dL (<200); Estimated Glomerular Filt Rate > 60; Glucose Random 99 mg/dL (60-115); HDL Cholesterol 30 mg/dL (>40); Iron 38 mcg/dL (30-160); LDL Cholesterol Calculated 149 mg/dL (<100); Percent Iron Saturation 15 % (15-50); Potassium 4.3 mmol/L (3.3-5.1); Sodium 138 mmol/L (135-145); Total Iron Binding Capacity 262 mcg/dL (228-428); Total Protein 7.2 g/dL (6.5-8.0); Triglycerides 256 mg/dL (<150); Unsaturated Iron Binding 224 ug/dL
[2024-02-15 15:16] LABS: Ferritin 22 ng/mL (10-250); TSH reflex Free T4 0.48 uIU/mL (0.32-4.0); Vitamin D 25-OH Total 20.5 ng/mL (>30)
== END 2024-02-15 09:35 | disposition home or self-care (01) ==
LOC: HO.CHCLDS 09:34
PROVIDERS: Visit Provider Registered Nurse
DX: Z13.89 Encounter for screening for other disorder (principal)
CPT/HCPCS: 36415; 80053; 80061; 82306; 82728; 83036; 83540; 84443; 85025

== ENCOUNTER 2024-02-15 14:40 | Outpatient (REF) | payer OTHER, SELFPAY | END 2024-02-15 14:41 | disposition home or self-care (01) | LOC: HO.US 14:40 | PROVIDERS: PCP Registered Nurse; Visit Provider Registered Nurse | DX: Z00.00 Encounter for general adult medical examination without abnormal findings (principal); N93.8 Other specified abnormal uterine and vaginal bleeding; D25.9 Leiomyoma of uterus, unspecified; Z13.1 Encounter for screening for diabetes mellitus; Z13.89 Encounter for screening for other disorder | CPT/HCPCS: 36415; 76830; 76856; 80053; 80061; 82306; 82728; 83036; 83540; 84443; 85025 ==

== ENCOUNTER 2024-06-08 16:17 | Outpatient (REF) | payer OTHER, SELFPAY ==
[2024-06-08 17:50] LABS: MANUAL DIFF FLAG NO
[2024-06-08 18:08] LABS: Alanine Aminotransferase 16 U/L (0-31); Albumin Level 4.1 g/dL (3.5-5.0); Alkaline Phosphatase 75 U/L (39-117); Anion Gap 10 (12-20); Aspartate Amino Transferase 22 U/L (5-31); Bilirubin Total 0.4 mg/dL (0.0-1.0); Blood Urea Nitrogen 12 mg/dL (9-16); Calcium 8.8 mg/dL (8.4-10.2); Carbon Dioxide 22 mmol/L (22-29); Chloride 108 mmol/L (96-108); Estimated Glomerular Filt Rate > 60; Glucose Random 75 mg/dL (60-115); Potassium 3.8 mmol/L (3.3-5.1); Sodium 136 mmol/L (135-145); Total Protein 7.9 g/dL (6.5-8.0)
[2024-06-08 18:21] LABS: Basophils Absolute Auto 0.1 X10*3/uL (0.0-0.2); Basophils Percent Auto 0.5 % (0-2); Eosinophils Absolute Auto 0.1 X10*3/uL (0.0-0.4); Eosinophils Percent Auto 0.8 % (0-4); Hematocrit 40.3 % (37.0-47.0); Hemoglobin 13.2 g/dl (12.0-16.0); Imm Gran Abs Auto 0.07 X10*3/uL (0.00-0.03); Imm Gran Pct Auto 0.6 % (0.0-0.4); Lymphocytes Absolute Auto 2.5 X10*3/uL (1.2-4.9); Lymphocytes Percent Auto 21.2 % (20-40); Mean Corpuscular HGB Conc 32.8 g/dl (31.0-35.0); Mean Corpuscular Hemoglobin 30.2 pg (27.0-33.0); Mean Corpuscular Volume 92.2 fL (80.0-98.0); Mean Platelet Volume 11.4 fL (9.4-12.3); Monocytes Absolute Auto 0.7 X10*3/uL (0.1-1.2); Monocytes Percent Auto 5.8 % (2-11); Neutrophils Absolute Auto 8.5 x10*3/uL (2.0-8.3); Neutrophils Percent Auto 71.1 % (45-73); Platelet Count 274 X10*3/uL (160-400); Red Blood Count 4.37 X10*6/uL (4.20-5.50); White Blood Count 11.9 X10*3/uL (4.8-10.8)
[2024-06-09 16:42] LABS: CT PCR NOT DETECTED (Not Detect.); NG PCR NOT DETECTED (Not Detect.)
[2024-06-11 08:55] LABS: Hepatitis A Antibody IgG Nonreactive (Nonreactive); ~Hepatitis A Antibody IgG 0.38 S/CO (0.00-0.99)
[2024-06-11 09:14] LABS: HBc Num1 0.08 S/CO (0.00-0.79); HBsAGNum1 0.33 S/CO (0.00-0.99); Hepatitis B Core Antibody Nonreactive (Nonreactive); Hepatitis B Surface Antigen Negative (Negative); ~HepC Num1 0.13 S/CO (0.00-0.79); ~Hepatitis B Surface Antibody REACTIVE (Nonreactive); ~Hepatitis C Antibody Nonreactive (Nonreactive)
[2024-06-11 09:17] LABS: Syphilis Screen Nonreactive (Nonreactive)
[2024-06-11 12:53] LABS: HIV RNA PCR Qn Copies NOT DETECTED copies/mL (NOT DETECTED); HIV RNA PCR Qn Log Copies NOT DETECTED (NOT DETECTED)
[2024-06-13 16:49] LABS: Absolute CD3 Count 1844 cells/uL (840-3060); Absolute CD4 Count 700 cells/uL (490-1740); Absolute CD8 Count 1181 cells/uL (180-1170); Absolute Lymphocytes 2281 cells/uL (850-3900); CD4 CD8 Ratio 0.59 (0.86-5.00); Percent CD3 Cells 81 % (57-85); Percent CD4 Cells 31 % (30-61); Percent CD8 Cells 52 % (12-42)
== END 2024-06-08 16:18 | disposition home or self-care (01) ==
LOC: HO.HHCL 16:17
PROVIDERS: Visit Provider Internal Medicine
DX: Z21 Asymptomatic human immunodeficiency virus [HIV] infection status (principal); B97.35 Human immunodeficiency virus, type 2 [HIV 2] as the cause of diseases classified elsewhere
CPT/HCPCS: 80053; 85025; 86359; 86360; 86704; 86706; 86708; 86780; 86803; 87340; 87491; 87536; 87591

== ENCOUNTER 2024-06-15 14:44 | Outpatient (REF) | payer OTHER, SELFPAY ==
[2024-06-15 17:09] LABS: TSH reflex Free T4 10.99 uIU/mL (0.32-4.0)
[2024-06-15 18:02] LABS: Free T4 (Free Thyroxine) 0.71 ng/dL (0.71-1.85)
[2024-06-16 10:41] LABS: CT PCR NOT DETECTED (Not Detect.); NG PCR NOT DETECTED (Not Detect.)
[2024-06-18 17:27] LABS: TS Negative Control Passed; TS Panel A 0; TS Panel B 0; TS Positive Control Passed; TSpotTB Negative (Negative)
== END 2024-06-15 14:45 | disposition home or self-care (01) ==
LOC: HO.HHCL 14:44
PROVIDERS: Registered Nurse; Visit Provider Internal Medicine
DX: E03.9 Hypothyroidism, unspecified (principal); B97.35 Human immunodeficiency virus, type 2 [HIV 2] as the cause of diseases classified elsewhere
CPT/HCPCS: 36415; 84439; 84443; 86481; 87491; 87591

== ENCOUNTER 2024-11-26 19:31 | Outpatient (REF) | payer OTHER, SELFPAY | END 2024-11-26 19:32 | disposition home or self-care (01) | LOC: HO.CHCLNP 19:31 | PROVIDERS: Visit Provider Registered Nurse | DX: Z12.4 Encounter for screening for malignant neoplasm of cervix (principal); Z11.51 Encounter for screening for human papillomavirus (HPV) | CPT/HCPCS: 87626; 88112; 88175 ==

== ENCOUNTER 2024-12-26 10:27 | Outpatient (REF) | payer OTHER, SELFPAY ==
--- NOTE | ~2024-12-26 | XR_ITS ---
EXAMINATION: XR FOREARM, LEFT CLINICAL INFORMATION: 44 y/o F with pain in left forearm hx of fx. COMPARISON: None available. TECHNIQUE: AP and lateral views of the left forearm were obtained. FINDINGS: Anterior fat pad is visible but not displaced. Posterior fat pad is not visible. No degenerative changes are identified. No fracture lines are visible. XR/XR forearm LT 2V IMPRESSION: Unremarkable left forearm. Electronically signed by: Konstantin Hernandez MD 12/26/2024 10:58 AM EDT
[2024-12-26 11:21] LABS: MANUAL DIFF FLAG NO
[2024-12-26 11:30] LABS: Hematocrit 39.4 % (37.0-47.0); Hemoglobin 13.3 g/dl (12.0-16.0); Imm Gran Abs Auto 0.04 X10*3/uL (0.00-0.03); Imm Gran Pct Auto 0.5 % (0.0-0.4); Lymphocytes Absolute Auto 1.9 X10*3/uL (1.2-4.9); Mean Corpuscular HGB Conc 33.8 g/dl (31.0-35.0); Mean Corpuscular Hemoglobin 31.9 pg (27.0-33.0); Mean Corpuscular Volume 94.5 fL (80.0-98.0); NRBC Abs Auto 0.000 X10*3/uL (0.0-0.012); NRBC Pct Auto 0.0 /100WBC (0.0-0.2); Platelet Count 233 X10*3/uL (160-400); Red Blood Count 4.17 X10*6/uL (4.20-5.50); White Blood Count 7.9 X10*3/uL (4.8-10.8)
[2024-12-26 11:41] LABS: INTERNATIONAL NORM RATIO 1.0 (0.9-1.1); Prothrombin Time 10.9 SEC (10.9-12.4)
[2024-12-26 13:51] LABS: Alanine Aminotransferase 20 U/L (0-31); Albumin Level 4.2 g/dL (3.5-5.0); Alkaline Phosphatase 61 U/L (39-117); Anion Gap 9 (12-20); Aspartate Amino Transferase 35 U/L (5-31); Blood Urea Nitrogen 9 mg/dL (9-16); Calcium 9.1 mg/dL (8.4-10.2); Carbon Dioxide 27 mmol/L (22-29); Chloride 105 mmol/L (96-108); Cholesterol 265 mg/dL (<200); Estimated Glomerular Filt Rate 46; HDL Cholesterol 44 mg/dL (>40); Potassium 4.3 mmol/L (3.3-5.1); Sodium 137 mmol/L (135-145); Total Protein 7.2 g/dL (6.5-8.0); Triglycerides 184 mg/dL (<150)
[2024-12-26 14:51] LABS: Reflex LDLD? No
[2024-12-26 15:13] LABS: Free T4 (Free Thyroxine) 0.68 ng/dL (0.71-1.85)
[2024-12-27 15:03] LABS: HIV RNA PCR Qn Copies 129 copies/mL (NOT DETECTED); HIV RNA PCR Qn Log Copies 2.11 (NOT DETECTED)
[2025-01-01 17:58] LABS: Absolute CD3 Count 1451 cells/uL (840-3060); Absolute CD8 Count 873 cells/uL (180-1170); Percent CD3 Cells 81 % (57-85); Percent CD8 Cells 49 % (12-42)
== END 2024-12-26 10:28 | disposition home or self-care (01) ==
LOC: HO.HHCL 10:27
PROVIDERS: PCP Registered Nurse; Referring Provider Internal Medicine; Visit Provider Registered Nurse
DX: Z00.00 Encounter for general adult medical examination without abnormal findings (principal); Z13.29 Encounter for screening for other suspected endocrine disorder; Z21 Asymptomatic human immunodeficiency virus [HIV] infection status; R79.89 Other specified abnormal findings of blood chemistry; M79.602 Pain in left arm
CPT/HCPCS: 36415; 73090; 80053; 80061; 84439; 84443; 85025; 85610; 86359; 86360; 87536

== ENCOUNTER → 2024-12-26 10:43 | Outpatient (BNV) | payer OTHER, SELFPAY | PROVIDERS: PCP Registered Nurse; Referring Provider Internal Medicine; Visit Provider Radiology Diagnostic Radiology | DX: M79.632 Pain in left forearm (principal) | CPT/HCPCS: 73090 ==

== ENCOUNTER → 2025-04-10 14:45 | Outpatient (BNV) | payer OTHER, SELFPAY | PROVIDERS: PCP Registered Nurse; Visit Provider Internal Medicine | DX: Z12.31 Encounter for screening mammogram for malignant neoplasm of breast (principal) | CPT/HCPCS: 77063; 77067 ==

== ENCOUNTER 2025-04-10 14:49 | Outpatient (REF) | payer OTHER, SELFPAY ==
--- OUTSIDE RECORDS SUMMARY | 2025-04-10 15:48 | XMS_ITS | Data Portability ---
Author Organization [place] - [facility], [facility]., [facility] Address [address] [place] [address] Assessment No assessment recorded. Plan of Treatment Reminders Order Date Submit Date Provider Last Modified By Organization Details Last Modified Time Details Appointments None recorded. Lab None recorded. Referral None recorded. Procedures None recorded. Surgeries None recorded. Imaging None recorded. Medication Orders [id number] [address] [place], [address], 4 17:32:10 dicyclomine 20 mg tablet 2022 023 [place] [id number], [address] [place], [address], 3 19:07:14 Patient TargetsNo targets recorded. Patient InstructionsNo instructions recorded. Reason for Referral None Reported. Problems Name Problem SNOMED Code Status Onset Date Resolution Date Notes Provider Name and Address Organization Details Recorded Time Epigastric pain 35766477 Active 2022 Epigastric pain; Location: None Cours e: Chronic Pr ogress: Stable Add ed By: Evangelist Matta nfidential : False Visi ts: 1 Not Available [facility] 3 00:23:30 Screening for malignant neoplasm of colon Active 2022 Encounter for screening for malignant neoplasm of colon; Location: None Cours e: Chronic Pr ogress: Stable Add ed By: Evangelist Matta nfidential : False Visi ts: 1 Not Available [facility] 3 00:23:30 Problem Notes None recorded. Medical Equipment None Reported. Medications Name Sig Start Date Stop Date Status Note LastModified by Organization Details LastModified Time tetracycline 500 mg capsule active Not Available Not Available Not Available promethazine- DM 6.25 mg-15 mg/5 mL oral syrup TAKE 5 ML BY MOUTH EVERY 6 HOURS NEEDED active Not Available Not Available No t Available fluconazole 150 mg tablet TAKE 1 TABLET BY MOUTH ONE TIME active Not Available Not Available No t Available sulfamethoxaz ole 400 mg-trimethopr im 80 mg tablet TAKE 1 TABLET BY MOUTH TWICE A DAY active Not Available Not Available No t Available meloxicam 15 mg tablet active Not Available Not Available No t Available phenazopyridi ne 200 mg tablet TAKE 1 TABLET BY MOUTH 3 TIMES A DAY FOR 2 DAYS AFTER MEALS active Not Available Not Available No t Available metronidazole 250 mg tablet active Not Available Not Availabl e Not Available metronidazole 500 mg tablet TAKE 1 TABLET BY MOUTH EVERY 12 HOURS FOR 14 DAYS active Not Available Not Available No t Available omeprazole 40 mg capsule,delay ed release TAKE 1 CAPSULE BY MOUTH EVERY DAY 30 MIN BEFORE MORNING MEAL active Not Available Not Available No t Available acetaminophen 500 mg tablet TAKE 1 TABLET BY MOUTH EVERY 6 HOURS NEEDED FOR PAIN DO NOT EXCEED 4 GM PER DAY active Not Available Not Available No t Available dicyclomine 20 mg tablet TAKE 1 TABLET BY MOUTH FOUR TIMES A DAY active Not Available Not Available No t Available doxycycline monohydrate 100 mg capsule TAKE 1 CAPSULE BY MOUTH TWICE A DAY FOR 14 DAYS active Not Available Not Available No t Available omeprazole 20 mg capsule,delay ed release TAKE 1 CAPSULE BY MOUTH EVERY DAY-INS active Not Available Not Available No t Available ergocalcifero l (vitamin D2) 1,250 mcg (50,000 unit) capsule TAKE 1 CAPSULE BY MOUTH ONE TIME PER WEEK active Not Available Not Available No t Available ibuprofen 600 mg tablet TAKE 1 TABLET BY MOUTH EVERY 8 HOURS PAIN-MODER ATE (SCALE 4-6) NEEDED active Not Available Not Available No t Available dicyclomine 10 mg capsule TAKE 1 CAPSULE BY MOUTH THREE TIMES A DAY NEEDED active Not Available Not Available No t Available nitrofurantoi n monohydrate/m acrocrystals 100 mg capsule TAKE 1 CAPSULE (100 MG) BY MOUTH EVERY 12 HOURS FOR 3 DAYS WITH FOOD active Not Available Not Available No t Available diclofenac 1 % topical gel APPLY 4 GRAMS TOPICALLY TO AFFECTED AREA 4 TIMES PER DAY active Not Available Not Available No t Available Paxlovid 300 mg (150 mg x 2)-100 mg tablets in a dose pack TAKE 3 TABLETS BY MOUTH 2 TIMES PER DAY FOR 5 DAYS active Not Available Not Available No t Available Her Style 1.5 mg tablet TAKE 1 TABLET BY MOUTH A SINGLE DOSE active Not Available Not Available No t Available Vitals Date Recorded Body weight Heart rate Systolic And Diastolic Provider Name and Address Organization Details Last Updated DateTime 09/01/2023 61742.86 g 63 /min 111/66 mm[Hg] ADELITA MAZARIEGOS [facility] 09/01/2023 17:11:19 Date Recorded Body weight Heart rate Systolic And Diastolic Provider Name and Address Organization Details Last Updated DateTime 02/08/2023 28803.49 g 85 /min 92/62 mm[Hg] Nelda Perry [facility] 02/08/2023 17:56:27 Social History None recorded. Functional Status None recorded. Mental Status None recorded. Family History Nothing Reported. Medical History No medical history recorded. Gynecological HistoryNo gynecological history recorded. Obstetrics History GPAL:G 0 P 0 0 0 0 Past Encounters Encounter ID Performer Location Encounter Start Date Encounter Closed Date Diagnosis/Indication Diagnosis SNOMED-CT Code Diagnosis ICD10 Code Diagnosis IMO Codes Diagnosis Note [id number] Evangelist Matta MD [address], [address] [place] [address] 02/08/2023 16:56:01 02/09/2023 13:22:34 Nonulcer dyspepsia 1050033 K30 trial of dicyclomin ewean off omeprazole if possibledi et modificati onf/u in 6 months [id number] Evangelist Matta MD [address], [address] [place] [address] 09/01/2023 16:32:11 09/01/2023 17:38:18 Irritable bowel syndrome 34914907 K58.9 trial of dicyclomin e 10mg prncont with diet modificati onf/u in 6 monthsok to avoid omeprazole Health Concerns Section Related Observation LastModified by Organization Detai ls LastModified Time None Recorded Concern Status LastModified by Organization Details LastModified Time None Recorded Advance Directives Directive None Recorded Payers Insurance Date Sequence Insurance Name Policy Number Policy Chase Covered Member ID Chase Member ID Guarantor Name 02/27/2024 1 [facility] ([facility]) Kalli Cho [id number] Kalli Cho 02/27/2024 1 [facility]ED [facility] [place] Kalli Cho [id number] Kalli Cho Notes Date Note Type Note Provider Name and Address Organization Details Recorded Time 02/08/2023 text/html pt doing much better with omeprazole 40mg daily Evangelist Matta MD [address], [place], [address], [facility] 02/08/2023 19:07:24 09/01/2023 text/html dicylomine helped but made her sleepy; no longer taking omeprazole Evangelist Matta MD [address], [place], [address], [facility] 09/01/2023 17:32:27 OBGyn Episode No OBEpisode recorded.
== END 2025-04-10 14:50 | disposition home or self-care (01) ==
LOC: HO.MAMMO 14:49
PROVIDERS: PCP Registered Nurse; Visit Provider Registered Nurse
DX: Z12.31 Encounter for screening mammogram for malignant neoplasm of breast (principal)
CPT/HCPCS: 77063; 77067